=== PATIENT | male | born 1970 | race American Indian/Alaskan Native ===

== ENCOUNTER 2017-01-30 14:44 | Emergency (ER) | payer BC, MEDICAID, OTHER ==
[2017-01-30 14:28] VITALS: BP 100/78
[2017-01-30 15:04] LABS: CHLORIDE,CL 91 mmol/L (101-111); SODIUM,NA 128 mmol/L (135-145)
[2017-01-30] MEDS ORDERED: Sodium Chloride 0.9% 1,000 ML IV ONE (15:08)
[2017-01-30] MEDS ORDERED: Insulin NPH/Insulin Regular,Human 70-30 100 Units/ML 10 ML Vial SUBCUT ONE ×2 (15:11→16:15)
--- NOTE | 2017-01-30 15:18 | EDM.PDOC ---
ED HPI GENERAL MEDICAL PROBLEM - General Chief Complaint: General Stated Complaint: ELEVATED BLOOD SUGAR Time Seen by Provider: 01/30/17 15:00 Source of Information: Reports: Patient History Limitations: Reports: No Limitations - History of Present Illness INITIAL COMMENTS - FREE TEXT/NARRATIVE: This 46 yo male patient was brought to the ED by [facility] after being seen at the [facility]. While at the clinic, the clinic measured his blood sugar to be 700 and sent him to the ED by ambulance. The patient reports he has not taken his insulin since last Monday due to not feeling well. The patient reports he has had a cough for the past 2 weeks that has been getting worse. The patient has not been seen in the clinic for his current symptoms. Onset: Gradual Duration: Week(s):, Constant, Getting Worse Location: Reports: Generalized Quality: Reports: Ache, Dull Severity: Moderate Improves with: Reports: None Worsens with: Reports: None Associated Symptoms: Reports: No Other Symptoms Generalized Pain Score (Numeric/FACES): 7 - Related Data Allergies Allergy/AdvReac Type Severity Reaction Status Date / Time No Known Allergies Allergy Verified 12/01/15 03:59 Home Meds: Home Meds Levemir 20 units SQ BID 02/11/14 [History] Lisinopril 10 mg PO DAILY 02/11/14 [History] Novalog 12 units SQ TID 02/11/14 [History] Metoprolol Succinate [Toprol Xl] 100 mg PO DAILY 01/30/17 [History] Pantoprazole [ProTONIX] 40 mg PO ONETIME 01/30/17 [History] Past Medical History Cardiovascular History: Reports: Heart Failure, High Cholesterol, Hypertension, [place], Stents Respiratory History: Reports: Pneumonia, Recurrent Gastrointestinal History: Reports: Colon Polyp Genitourinary History: Reports: Diabetic Nephropathy, Prostate Disorder, Other ( See Below) Other Genitourinary History: cyst on left kidney and cancer on right kidney, small Musculoskeletal History: Reports: Fracture Psychiatric History: Reports: Anxiety Endocrine/Metabolic History: Reports: Diabetes, Type I Other Hematologic History: states blood was "too thin" at one time Oncologic (Cancer) History: Reports: Renal - Infectious Disease History Infectious Disease History: Reports: Hepatitis C - Past Surgical History Other Musculoskeletal Surgeries/Procedures:: plate in right lower leg Other Oncologic Surgeries/Procedures: supposed to have surgery, but has never been a candidate Social & Family History - Tobacco Use Smoking Status *Q: Current Every Day Smoker Years of Tobacco use: 20 Packs/Tins Daily: 1 Second Hand Smoke Exposure: Yes - Caffeine Use Caffeine Use: Reports: Soda, Tea - Recreational Drug Use Recreational Drug Use: No ED ROS GENERAL - Review of Systems Review Of Systems: ROS reveals no pertinent complaints other than HPI. ED EXAM, GENERAL - Physical Exam Exam: See Below Exam Limited By: No Limitations General Appearance: Alert, WD/WN, Moderate Distress Eye Exam: Bilateral Eye: EOMI, Normal Inspection, PERRL Ears: Normal External Exam, Normal Canal, Hearing Grossly Normal, Normal TMs Nose: Normal Inspection, Normal Mucosa, No Blood Throat/Mouth: Normal Inspection, Normal Lips, Normal Teeth, Normal Gums, Normal Oropharynx, Normal Voice, No Airway Compromise Head: Atraumatic, Normocephalic Neck: Normal Inspection, Supple, Non-Tender, Full Range of Motion Respiratory/Chest: No Respiratory Distress, No Accessory Muscle Use, Chest Non- Tender, Rhonchi (diffuse) Cardiovascular: Normal Peripheral Pulses, Regular Rate, Rhythm, No Edema, No Gallop, No JVD, No Murmur, No Rub GI/Abdominal: Normal Bowel Sounds, Soft, Non-Tender, No Organomegaly, No Distention, No Abnormal Bruit, No Mass (Male) Exam: Deferred Rectal (Males) Exam: Deferred Back Exam: Normal Inspection, Full Range of Motion, NT Extremities: Normal Inspection, Normal Range of Motion, Non-Tender, Normal Capillary Refill, No Pedal Edema Neurological: Alert, Oriented, CN II-XII Intact, Normal Cognition, Normal Gait, Normal Reflexes, No Motor/Sensory Deficits Psychiatric: Normal Affect, Normal Mood Skin Exam: Warm, Dry, Intact, Normal Color, No Rash Lymphatic: No Adenopathy Course - Vital Signs Last Recorded V/S: Last Vital Signs Temp 36.6 C 01/30/17 14:25 Pulse 91 01/30/17 14:25 Resp 12 01/30/17 14:25 BP 100/78 01/30/17 14:25 Pulse Ox 97 01/30/17 14:25 - Orders/Labs/Meds Orders: Active Orders 24 hr Category Date Time Status Glucose [Blood Glucose Check, Bedside] [RC] ONETIME Care 01/30/17 14:00 Active UA W/MICROSCOPIC [URIN] Stat Lab 01/30/17 16:12 Results Sodium Chloride 0.9% [Normal Saline] 1,000 ml Med 01/30/17 16:45 Active IV ASDIRECTED cefTRIAXone [Rocephin] 1 gm Med 01/30/17 16:42 Ordered Sodium Chloride 0.9% [Normal Saline] 50 ml IV ONETIME Medication Orders Sodium Chloride (Normal Saline) 1,000 mls @ 500 mls/hr IV ASDIRECTED JEFFY Last Admin: 01/30/17 16:32 Dose: 500 mls/hr Ceftriaxone Sodium 1 gm/ (Sodium Chloride) 50 mls @ 100 mls/hr IV ONETIME ONE Stop: 01/30/17 17:11 Labs: Laboratory Tests 01/30/17 01/30/17 01/30/17 Range/Units 14:04 14:15 14:15 WBC 8.6 (5.0-10.0) 10^3/uL RBC 5.32 (4.6-6.2) 10^6/uL Hgb 15.6 D (14.0-18.0) g/dL Hct 43.8 (40.0-54.0) % MCV 82.3 (80-100) fL MCH 29.3 (27.0-34.0) pg MCHC 35.6 H (33.0-35.0) g/dL Plt Count 240 (150-450) 10^3/uL Neut % (Auto) 68.0 (42.2-75.2) % Lymph % (Auto) 24.0 (20.5-50.1) % [place] % (Auto) 7.0 (2-8) % Eos % (Auto) 0.7 L (1.0-3.0) % Baso % (Auto) 0.3 (0.0-1.0) % Sodium 128 L (135-145) mmol/L Potassium 4.9 (3.6-5.0) mmol/L Chloride 91 L (101-111) mmol/L Carbon Dioxide 27.0 (21.0-31.0) mmol/L Anion Gap 14.9 BUN 18 (7-18) mg/dL Creatinine 0.7 (0.6-1.3) mg/dL Est Cr Clr Drug Dosing 136.15 mL/min Estimated GFR (MDRD) > 60 BUN/Creatinine Ratio 25.71 Glucose 512 H* (74-105) mg/dL POC Glucose 428 H* (70-105) mg/dl Calcium 9.6 (8.4-10.2) mg/dl Total Bilirubin 0.7 (0.2-1.0) mg/dL AST 21 (10-42) IU/L ALT 26 (10-60) IU/L Alkaline Phosphatase 193 H (42-121) IU/L Total Protein 7.5 (6.7-8.2) g/dl Albumin 3.9 (3.2-5.5) g/dl Globulin 3.6 Albumin/Globulin Ratio 1.08 Urine Color (YELLOW) Urine Appearance (CLEAR) Urine pH (5.0-9.0) Ur Specific [place] (1.005-1.030) Urine Protein (NEGATIVE) Urine Glucose (UA) (NEGATIVE) Urine Ketones (NEGATIVE) Urine Occult Blood (NEGATIVE) Urine Nitrite (NEGATIVE) Urine Bilirubin (NEGATIVE) Urine Urobilinogen (0.2-1.0) mg/dL Ur Leukocyte Esterase (NEGATIVE) Ketones Negative 01/30/17 01/30/17 Range/Units 16:12 16:20 WBC (5.0-10.0) 10^3/uL RBC (4.6-6.2) 10^6/uL Hgb (14.0-18.0) g/dL Hct (40.0-54.0) % MCV (80-100) fL MCH (27.0-34.0) pg MCHC (33.0-35.0) g/dL Plt Count (150-450) 10^3/uL Neut % (Auto) (42.2-75.2) % Lymph % (Auto) (20.5-50.1) % [place] % (Auto) (2-8) % Eos % (Auto) (1.0-3.0) % Baso % (Auto) (0.0-1.0) % Sodium (135-145) mmol/L Potassium (3.6-5.0) mmol/L Chloride (101-111) mmol/L Carbon Dioxide (21.0-31.0) mmol/L Anion Gap BUN (7-18) mg/dL Creatinine (0.6-1.3) mg/dL Est Cr Clr Drug Dosing mL/min Estimated GFR (MDRD) BUN/Creatinine Ratio Glucose (74-105) mg/dL POC Glucose 349 H (70-105) mg/dl Calcium (8.4-10.2) mg/dl Total Bilirubin (0.2-1.0) mg/dL AST (10-42) IU/L ALT (10-60) IU/L Alkaline Phosphatase (42-121) IU/L Total Protein (6.7-8.2) g/dl Albumin (3.2-5.5) g/dl Globulin Albumin/Globulin Ratio Urine Color Yellow (YELLOW) Urine Appearance Clear (CLEAR) Urine pH 5.5 (5.0-9.0) Ur Specific [place] 1.010 (1.005-1.030) Urine Protein 30 H (NEGATIVE) Urine Glucose (UA) 500 H (NEGATIVE) Urine Ketones Negative (NEGATIVE) Urine Occult Blood Negative (NEGATIVE) Urine Nitrite Negative (NEGATIVE) Urine Bilirubin Negative (NEGATIVE) Urine Urobilinogen 0.2 (0.2-1.0) mg/dL Ur Leukocyte Esterase Negative (NEGATIVE) Ketones Meds: Medications Generic Name Dose Route Start Last Admin Trade Name Freq PRN Reason Stop Dose Admin Sodium Chloride 1,000 mls @ 500 mls/hr 01/30/17 16:45 01/30/17 16:32 Normal Saline IV 500 mls/hr ASDIRECTED JEFFY Administration Ceftriaxone Sodium 1 gm/ 50 mls @ 100 mls/hr 01/30/17 16:42 Sodium Chloride IV 01/30/17 17:11 ONETIME ONE Discontinued Medications Generic Name Dose Route Start Last Admin Trade Name Freq PRN Reason Stop Dose Admin Sodium Chloride 1,000 mls @ 999 mls/hr 01/30/17 15:08 01/30/17 15:13 Normal Saline IV 01/30/17 16:08 999 mls/hr .BOLUS ONE Administration Insulin Human Isoph/Insulin Regular 10 unit 01/30/17 15:11 Novolin 70-30 SUBCUT 01/30/17 15:12 ONETIME ONE Insulin Human Isoph/Insulin Regular Confirm 01/30/17 16:15 Novolin 70-30 Administered 01/30/17 16:16 Dose 1,000 unit SUBCUT .STK-MED ONE Departure - Departure Time of Disposition: 17:00 Disposition: Home, Self-Care 01 Condition: Fair Clinical Impression: Bronchitis, Noncompliance with medication regimen, Hyperglycemia - Discharge Information Instructions: Acute Bronchitis, [id number], Hyperglycemia, [id number] Forms: ED Department Discharge Care Plan Goals: The patient was advised of the examination, lab and x-ray results during the visit. The patient was given an IV dose of Rocephin while in the ED. The patient was discharged with a script for Azithromycin (500 mg) #5 to take 1 by mouth daily for 5 days and Robitussin AC #60 mL to take 10 mL by mouth at bedtime for cough. The patient was encouraged to follow-up with his primary care facility in the next week for continued evaluation and further management. - My Orders Last 24 Hours: My Active Orders 01/30/17 14:00 Glucose [Blood Glucose Check, Bedside] [RC] ONETIME 01/30/17 16:12 UA W/MICROSCOPIC [URIN] Stat 01/30/17 16:42 cefTRIAXone [Rocephin] 1 gm Sodium Chloride 0.9% [Normal Saline] 50 ml IV ONETIME 01/30/17 16:45 Sodium Chloride 0.9% [Normal Saline] 1,000 ml IV ASDIRECTED - Assessment/Plan Last 24 Hours: My Active Orders 01/30/17 14:00 Glucose [Blood Glucose Check, Bedside] [RC] ONETIME 01/30/17 16:12 UA W/MICROSCOPIC [URIN] Stat 01/30/17 16:42 cefTRIAXone [Rocephin] 1 gm Sodium Chloride 0.9% [Normal Saline] 50 ml IV ONETIME 01/30/17 16:45 Sodium Chloride 0.9% [Normal Saline] 1,000 ml IV ASDIRECTED
--- NOTE | 2017-01-30 16:05 | CR ---
Clinical history: 46-year-old male shortness of breath. Interpretation: Some shaggy accentuation central lung markings with mild peribronchial "cuffing" but no current signs of air trapping. Hypertrophic arthritic changes of the spine. Normal cardiac silhouette without cephalization of vascular flow, signs of alveolar edema or dependen t pleural effusion. No lung mass, hilar lymphadenopathy or focal lobar pneumonia. No atelectasis/collapse. No pneumothora x. CONCLUSION: No acute new cardiopulmonary abnormality since 13 September 2015 exam.
[2017-01-30] MEDS ORDERED: cefTRIAXone 1 GM in Sodium Chloride 0.9% 50 ML IV ONE (16:42)
[2017-01-30] MEDS ORDERED: Sodium Chloride 0.9% 1,000 ML IV SCH (16:45)
[2017-01-30] MEDS ORDERED: Acetaminophen 325 MG Tab PO ONE (16:54)
== END 2017-01-30 17:43 | disposition home or self-care (01) ==
LOC: DL.ED 14:44
DX: E10.65 Type 1 diabetes mellitus with hyperglycemia (principal); J40 Bronchitis, not specified as acute or chronic; Z91.14 Patient's other noncompliance with medication regimen; I11.0 Hypertensive heart disease with heart failure; E10.21 Type 1 diabetes mellitus with diabetic nephropathy; I50.9 Heart failure, unspecified; E78.00 Pure hypercholesterolemia, unspecified; F17.210 Nicotine dependence, cigarettes, uncomplicated; Z79.899 Other long term (current) drug therapy
CPT/HCPCS: 36415; 71020; 80053; 81001; 82009; 82962; 85025; 96361; 96365; 99284; A9270; J0696; J1815; J7030; J7050

== ENCOUNTER 2017-02-20 15:58 | Emergency (ER) | payer MEDICAID, OTHER ==
--- NOTE | 2017-02-20 16:23 | EDM.PDOC ---
ED HPI GENERAL MEDICAL PROBLEM - General Stated Complaint: CHEST PAIN, CAME BY AMBULANCE Time Seen by Provider: 02/20/17 16:25 Source of Information: Reports: Patient, Provider History Limitations: Reports: No Limitations - History of Present Illness INITIAL COMMENTS - FREE TEXT/NARRATIVE: This 46 yo male patient was sent to the ED due to chest pain. The patient reports his chest pain has been intermittent over the weekend (describes his pain as substernal and in the left upper chest). The patient reports he had chest pains last night at about 2000, but his chest pain went away by 0130 this morning. When he got up this morning, the patient reports noticing that his heart was racing which caused him to be seen in the clinic. The patient reports that he has had a history of diabetes (A1C has been 8-9 and average blood sugars around 500). The patient reports he has been intermittently non- compliant with his medications. The patient also reports a past medical history of cancer (surgery was scheduled and cancelled 3 times in the past) and chronic pain due to trauma from the past (both ankles, left hand and right shoulder). The patient reports he has been very frustrated with his medical problems and fed up with chronic pain. 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 Duration: Week(s):, Intermittent Location: Reports: Chest (substernal and left upper chest) Quality: Reports: Ache, Sharp Severity: Moderate Improves with: Reports: None Worsens with: Reports: None Associated Symptoms: Reports: Chest Pain, Cough - Related Data Allergies Allergy/AdvReac Type Severity Reaction Status Date / Time No Known Allergies Allergy Verified 12/01/15 03:59 Home Meds: Home Meds Levemir 20 units SQ BID 02/11/14 [History] Lisinopril 10 mg PO DAILY 02/11/14 [History] Novalog 12 units SQ TID 02/11/14 [History] Pantoprazole [ProTONIX] 40 mg PO DAILY 01/30/17 [History] Metoprolol Succinate [Toprol XL] 1 tab PO DAILY 02/20/17 [History] Past Medical History Cardiovascular History: Reports: Heart Failure, High Cholesterol, Hypertension, [place], Stents Respiratory History: Reports: Pneumonia, Recurrent Gastrointestinal History: Reports: Colon Polyp Genitourinary History: Reports: Diabetic Nephropathy, Prostate Disorder, Other ( See Below) Other Genitourinary History: cyst on left kidney and cancer on right kidney, small Musculoskeletal History: Reports: Fracture Psychiatric History: Reports: Anxiety Endocrine/Metabolic History: Reports: Diabetes, Type I Other Hematologic History: states blood was "too thin" at one time Oncologic (Cancer) History: Reports: Renal - Infectious Disease History Infectious Disease History: Reports: Hepatitis C - Past Surgical History Other Musculoskeletal Surgeries/Procedures:: plate in right lower leg Other Oncologic Surgeries/Procedures: supposed to have surgery, but has never been a candidate Social & Family History - Tobacco Use Smoking Status *Q: Light Tobacco Smoker Years of Tobacco use: 20 Packs/Tins Daily: 0.2 Second Hand Smoke Exposure: Yes - Caffeine Use Caffeine Use: Reports: Soda, Tea - Recreational Drug Use Recreational Drug Use: No ED ROS GENERAL - Review of Systems Review Of Systems: ROS reveals no pertinent complaints other than HPI. ED EXAM, GENERAL - Physical Exam Exam: See Below Exam Limited By: No Limitations General Appearance: Alert, WD/WN, Moderate Distress Eye Exam: Bilateral Eye: EOMI, Normal Inspection, PERRL Ears: Normal External Exam, Normal Canal, Hearing Grossly Normal, Normal TMs Nose: Normal Inspection, Normal Mucosa, No Blood Throat/Mouth: Normal Inspection, Normal Lips, Normal Teeth, Normal Gums, Normal Oropharynx, Normal Voice, No Airway Compromise Head: Atraumatic, Normocephalic Neck: Normal Inspection, Supple, Non-Tender, Full Range of Motion Respiratory/Chest: No Respiratory Distress, Lungs Clear, Normal Breath Sounds, No Accessory Muscle Use, Chest Non-Tender Cardiovascular: Normal Peripheral Pulses, Regular Rate, Rhythm, No Gallop, No JVD, No Murmur, No Rub GI/Abdominal: Normal Bowel Sounds, Soft, Non-Tender, No Organomegaly, No Distention, No Abnormal Bruit, No Mass (Male) Exam: Deferred Rectal (Males) Exam: Deferred Back Exam: Normal Inspection, Full Range of Motion, NT Extremities: Normal Range of Motion, Normal Capillary Refill, Other ( generalized pain in both ankles, right shoulder and left hand due to previous injuries) Neurological: Alert, Oriented, CN II-XII Intact, Normal Cognition Psychiatric: Depressed Mood, Flat Affect Skin Exam: Warm, Dry, Intact, Normal Color, No Rash Lymphatic: No Adenopathy Course - Vital Signs Last Recorded V/S: Last Vital Signs Temp 37.4 C 02/20/17 15:57 Pulse 108 H 02/20/17 15:57 Resp 20 02/20/17 15:57 BP 118/77 02/20/17 15:57 Pulse Ox 97 02/20/17 15:57 - Orders/Labs/Meds Orders: Active Orders 24 hr Category Date Time Status EKG Documentation Completion [RC] URGENT Care 02/20/17 16:10 Active Labs: Laboratory Tests 02/20/17 02/20/17 Range/Units 16:25 16:25 WBC 7.9 (5.0-10.0) 10^3/uL RBC 4.94 (4.6-6.2) 10^6/uL Hgb 14.7 (14.0-18.0) g/dL Hct 41.2 (40.0-54.0) % MCV 83.4 (80-100) fL MCH 29.8 (27.0-34.0) pg MCHC 35.7 H (33.0-35.0) g/dL Plt Count 273 (150-450) 10^3/uL Neut % (Auto) 53.0 (42.2-75.2) % Lymph % (Auto) 37.5 (20.5-50.1) % [place] % (Auto) 7.4 (2-8) % Eos % (Auto) 1.3 (1.0-3.0) % Baso % (Auto) 0.8 (0.0-1.0) % Sodium 136 (135-145) mmol/L Potassium 3.8 (3.6-5.0) mmol/L Chloride 102 (101-111) mmol/L Carbon Dioxide 25.0 (21.0-31.0) mmol/L Anion Gap 12.8 BUN 21 H (7-18) mg/dL Creatinine 0.8 (0.6-1.3) mg/dL Est Cr Clr Drug Dosing 119.13 mL/min Estimated GFR (MDRD) > 60 BUN/Creatinine Ratio 26.25 Glucose 117 H (74-105) mg/dL Calcium 10.0 (8.4-10.2) mg/dl Total Bilirubin 0.6 (0.2-1.0) mg/dL AST 22 (10-42) IU/L ALT 24 (10-60) IU/L Alkaline Phosphatase 133 H (42-121) IU/L Troponin I < 0.02 (0.00-0.02) ng/ml Total Protein 7.6 (6.7-8.2) g/dl Albumin 3.9 (3.2-5.5) g/dl Globulin 3.7 Albumin/Globulin Ratio 1.05 Departure - Departure Time of Disposition: 17:13 Disposition: Home, Self-Care 01 Condition: Fair Clinical Impression: Non-cardiac chest pain, Chronic pain due to injury Instructions: Nonspecific Chest Pain, [id number], Chronic Pain, Type 1 Diabetes Mellitus, Adult Forms: ED Department Discharge Care Plan Goals: The patient was advised of the examination, lab, x-ray and EKG results during the visit. The patient was advised to return to his primary care facility for further testing (stress test) and pain management (due to previous orthopedic injuries). The patient was encouraged to continue to take his medications as prescribed. If the patient has any additional symptoms or concerns, the patient should follow-up with his primary care facility or return to the emergency department. - My Orders Last 24 Hours: My Active Orders 02/20/17 16:10 EKG Documentation Completion [RC] URGENT - Assessment/Plan Last 24 Hours: My Active Orders 02/20/17 16:10 EKG Documentation Completion [RC] URGENT
--- NOTE | 2017-02-20 16:34 | CR ---
Clinical history: 46-year-old male chest pain. Interpretation: *No acute new cardiopulmonary abnormality identified in the interval since 2016 chest x-ray. Normal cardiac silhouette and bony thorax. Midline tracheal airway unremarkable. No cephalization of vascular flow, signs of alveolar edema or dependent effusion. No new lung mass or focal lobar pneumonia. No atelectasis/collapse. No pneumothorax or free subdiaphragmatic air.
[2017-02-20 16:38] VITALS: BP 118/77
[2017-02-20 16:51] LABS: CHLORIDE,CL 102 mmol/L (101-111); SODIUM,NA 136 mmol/L (135-145)
--- NOTE | 2017-02-22 13:31 | EKG ---
02/20/2017 - LORENE BROOKS - A 12-lead EKG shows normal sinus rhythm with heart rate of 99. No significant ST elevation or ST depression noted on this 12-lead EKG. Nonspecific ST-T wave changes noted on lead V2 and V3. [facility] /[id number]
== END 2017-02-20 17:34 | disposition home or self-care (01) ==
LOC: DL.ED 15:58
DX: R07.89 Other chest pain (principal); M25.572 Pain in left ankle and joints of left foot; M25.571 Pain in right ankle and joints of right foot; M25.511 Pain in right shoulder; M79.642 Pain in left hand; G89.21 Chronic pain due to trauma; I10 Essential (primary) hypertension; F17.210 Nicotine dependence, cigarettes, uncomplicated; E10.9 Type 1 diabetes mellitus without complications; Z79.899 Other long term (current) drug therapy
CPT/HCPCS: 36415; 71010; 80053; 84484; 85025; 93005; 99285

== ENCOUNTER 2019-10-27 17:55 | Emergency (ER) | payer MEDICAID, OTHER ==
[2019-10-27 18:12] VITALS: BP 96/73; PULSE 107
[2019-10-27] MEDS ORDERED: fentaNYL 100 MCG/2 ML SDV IVPUSH ONE ×2 (18:38→21:30)
[2019-10-27] MEDS ORDERED: Clindamycin Phosphate 900 MG in Sodium Chloride 0.9% 100 ML IV ONE (18:38)
[2019-10-27] MEDS ORDERED: Sodium Chloride 0.9% 1,000 ML IV ONE (18:39)
--- NOTE | 2019-10-27 18:42 | EDM.PDOC ---
ED HPI GENERAL MEDICAL PROBLEM - General Chief Complaint: Lower Extremity Injury/Pain Stated Complaint: RIGHT FOOT, STEPPED ON A NAIL Time Seen by Provider: 10/27/19 18:40 Source of Information: Reports: Patient History Limitations: Reports: No Limitations - History of Present Illness INITIAL COMMENTS - FREE TEXT/NARRATIVE: stepped on nail 3 weeks ago looks worse today and hurts more. states also DM but not taken his Rx for 6 months now. Right Foot Pain Score (Numeric/FACES): 10 - Related Data Allergies Allergy/AdvReac Type Severity Reaction Status Date / Time No Known Allergies Allergy Verified 10/27/19 18:21 Past Medical History Cardiovascular History: Reports: Heart Failure, High Cholesterol, Hypertension, [place], Stents Respiratory History: Reports: Pneumonia, Recurrent Gastrointestinal History: Reports: Colon Polyp Genitourinary History: Reports: Diabetic Nephropathy, Prostate Disorder, Other (See Below) Other Genitourinary History: cyst on left kidney and cancer on right kidney, small Musculoskeletal History: Reports: Fracture Psychiatric History: Reports: Anxiety Endocrine/Metabolic History: Reports: Diabetes, Type I Other Hematologic History: states blood was "too thin" at one time Oncologic (Cancer) History: Reports: Renal - Infectious Disease History Infectious Disease History: Reports: Hepatitis C - Past Surgical History Other Musculoskeletal Surgeries/Procedures:: plate in right lower leg Other Oncologic Surgeries/Procedures: supposed to have surgery, but has never been a candidate Social & Family History - Tobacco Use Smoking Status *Q: Current Every Day Smoker Years of Tobacco use: 20 Packs/Tins Daily: 1 - Caffeine Use Caffeine Use: Reports: None - Alcohol Use Days Per Week of Alcohol Use: 7 Number of Drinks Per Day: 2 Total Drinks Per Week: 14 - Recreational Drug Use Recreational Drug Use: No Review of Systems - Review of Systems Review Of Systems: Comprehensive ROS is negative, except as noted in HPI. ED EXAM, GENERAL - Physical Exam Exam: See Below Exam Limited By: No Limitations General Appearance: Alert, WD/WN, Mild Distress, Moderate Distress, Other (pain) Ears: Hearing Grossly Normal Throat/Mouth: Normal Voice, No Airway Compromise Head: Atraumatic Neck: Non-Tender, Full Range of Motion Respiratory/Chest: No Respiratory Distress Cardiovascular: Regular Rate, Rhythm GI/Abdominal: Soft, Non-Tender Extremities: Other (right plantar 2"x1" grossly infected wound local erythema and odious) Neurological: Alert, Oriented, Normal Cognition, No Motor/Sensory Deficits Psychiatric: Flat Affect, Tearful Skin Exam: Warm, Dry, Normal Color Lymphatic: No Adenopathy Course - Vital Signs Last Recorded V/S: Last Vital Signs Temp 36.7 C 10/27/19 18:09 Pulse 107 H 10/27/19 18:09 Resp 20 10/27/19 18:09 BP 96/73 10/27/19 18:09 Pulse Ox 100 10/27/19 18:09 - Orders/Labs/Meds Orders: Active Orders 24 hr Category Date Time Status CULTURE BLOOD [BC] Stat Lab 10/27/19 18:19 Received CULTURE WOUND [RM] Stat Lab 10/27/19 18:09 Received Labs: Laboratory Tests 10/27/19 10/27/19 10/27/19 Range/Units 18:19 18:19 18:19 WBC 10.4 H (5.0-10.0) 10^3/uL RBC 4.20 L (4.6-6.2) 10^6/uL Hgb 12.0 L D (14.0-18.0) g/dL Hct 35.3 L (40.0-54.0) % MCV 84.0 (80-100) fL MCH 28.6 (27.0-34.0) pg MCHC 34.0 (33.0-35.0) g/dL Plt Count 304 (150-450) 10^3/uL Neut % (Auto) 74.3 (42.2-75.2) % Lymph % (Auto) 17.3 L (20.5-50.1) % [place] % (Auto) 7.2 (2-8) % Eos % (Auto) 1.0 (1.0-3.0) % Baso % (Auto) 0.2 (0.0-1.0) % Sodium 132 L (136-145) mmol/L Potassium 4.0 (3.5-5.1) mmol/L Chloride 96 L (98-107) mmol/L Carbon Dioxide 28 (21-32) mmol/L Anion Gap 12.0 (7-13) mEq/L BUN 17 (7-18) mg/dL Creatinine 1.33 H (0.70-1.30) mg/dL Est Cr Clr Drug Dosing TNP Estimated GFR (MDRD) 57 BUN/Creatinine Ratio 12.8 (No establ ref range) Glucose 224 H (74-99) mg/dL Lactic Acid 1.9 (0.4-2.0) mmol/L Calcium 8.8 (8.5-10.1) mg/dL Total Bilirubin 0.3 (0.2-1.0) mg/dL AST 15 (15-37) U/L ALT 18 (16-63) U/L Alkaline Phosphatase 110 (46-116) U/L Total Protein 8.0 (6.4-8.2) g/dL Albumin 2.4 L (3.4-5.0) g/dL Globulin 5.6 Albumin/Globulin Ratio 0.43 Meds: Medications Discontinued Medications Generic Name Dose Route Start Last Admin Trade Name Freq PRN Reason Stop Dose Admin Fentanyl 50 mcg 10/27/19 18:38 10/27/19 18:46 Sublimaze IVPUSH 10/27/19 18:39 50 mcg ONETIME ONE Administration Clindamycin Phosphate 900 mg/ 106 mls @ 200 mls/hr 10/27/19 18:38 10/27/19 18:48 Sodium Chloride IV 10/27/19 19:09 200 mls/hr ONETIME ONE Administration Sodium Chloride 1,000 mls @ 999 mls/hr 10/27/19 18:39 10/27/19 18:49 Normal Saline IV 10/27/19 19:39 999 mls/hr .BOLUS ONE Administration Iopamidol 100 ml 10/27/19 19:33 10/27/19 19:43 Isovue-300 (61%) IVPUSH 10/27/19 19:34 100 ml ONETIME ONE Administration - Re-Assessments/Exams Free Text/Narrative Re-Assessment/Exam: 10/27/19 21:[address] Poppy DO @ [facility]. Departure - Departure Time of Disposition: 21:20 Disposition: DC/Tfer to Acute Hospital 02 Condition: Fair Clinical Impression: Diabetic foot ulcer Qualifiers: Diabetic foot ulcer location: other Diabetes mellitus type: type 2 Laterality: right Non-pressure ulcer stage: with necrosis of muscle Qualified Code(s): E11.621 - Type 2 diabetes mellitus with foot ulcer; L97.513 - Non-pressure chronic ulcer of other part of right foot with necrosis of muscle - Discharge Information Forms: Interfacility Transfer EMTALA Sepsis Event Note (ED) - Evaluation Sepsis Screening Result: No Definite Risk - Focused Exam Vital Signs: Vital Signs Temp Pulse Resp BP Pulse Ox 10/27/19 18:09 36.7 C 107 H 20 96/73 100
[2019-10-27 18:48] LABS: CHLORIDE,CL 96 mmol/L (98-107); SODIUM,NA 132 mmol/L (136-145)
[2019-10-27] MEDS ORDERED: Iopamidol 612 MG/ML 100 ML Bottle IVPUSH ONE (19:33)
--- NOTE | 2019-10-27 20:40 | CT ---
PROCEDURE INFORMATION: Exam: CT Right Lower Extremity With Contrast, Foot Exam date and time: 10/27/2019 7:54 PM Age: 48 years old Clinical indication: Other: Pain; Additional info: R/O osteomyelitis and abscess TECHNIQUE: Imaging protocol: CT of the Right lower extremity with intravenous contrast was performed. Exam focused on the foot. Radiation optimization: All CT scans at this facility use at least one of these dose optimization techniques: automated exposure control; mA and/or kV adjustment per patient size (includes targeted exams where dose is matched to clinical indication); or iterative reconstruction. Contrast material: [id number]; Contrast volume: 100 ml; Contrast route: INTRAVENOUS (IV); COMPARISON: No relevant prior studies available. FINDINGS: Bones/joints: Bony structures are unremarkable. No osteolytic or destructive features. No fracture. No CT changes to suggest osteomyelitis. Mild lateral right talar dome osteochondral lesion. See coronal series 4, images 55 and 56. There are some images of the left foot and lower leg included. No acute findings. Soft tissues: Right plantar soft tissue ulceration and swelling consistent with cellulitis. There is no discrete fluid collection to suggest abscess. There is no soft tissue foreign body. Vascular atherosclerotic calcifications of the trifurcation arteries in both lower extremities. IMPRESSION: 1. Right plantar foot soft tissue swelling and ulceration. This may represent a diabetic type foot ulcer with associated cellulitis. No discrete abscess. No foreign body. 2. Lateral right talar dome small osteochondral lesion. 3. No CT features of osteomyelitis. 4. Left foot images included. No soft tissue wound. No acute bone or joint changes.
== END 2019-10-27 21:42 ==
LOC: DL.ED 17:55
DX: E11.621 Type 2 diabetes mellitus with foot ulcer (principal); L97.513 Non-pressure chronic ulcer of other part of right foot with necrosis of muscle; I11.0 Hypertensive heart disease with heart failure; I50.9 Heart failure, unspecified; E78.00 Pure hypercholesterolemia, unspecified; I25.2 Old myocardial infarction; E11.21 Type 2 diabetes mellitus with diabetic nephropathy; F17.210 Nicotine dependence, cigarettes, uncomplicated
CPT/HCPCS: 36415; 73701; 80053; 83605; 85025; 87040; 87070; 96361; 96365; 96375; 96376; 99285; J3010; J3490; J7030; J7050; Q9967; 87077; 87186

== ENCOUNTER 2020-11-25 16:38 | Inpatient (IN) | payer MEDICAID ==
[2020-11-25] MEDS ORDERED: Sodium Chloride 0.9% 10 ML Syringe FLUSH PRN (19:13)
[2020-11-25] MEDS ORDERED: Sodium Chloride 0.9% 1,000 ML IV ONE (19:20)
[2020-11-25] MEDS ORDERED: Piperacillin/Tazobactam 4.5 GM in Sodium Chloride 0.9% 100 ML IV ONE (19:23)
[2020-11-25 20:01] LABS: ANION GAP 7.9 mEq/L (7-13); CHLORIDE,CL 101 mmol/L (98-107); SODIUM,NA 136 mmol/L (136-145)
--- NOTE | 2020-11-25 20:16 | EDM.PDOC ---
ED HPI GENERAL MEDICAL PROBLEM - General Chief Complaint: Skin Complaint Stated Complaint: left foot injury Time Seen by Provider: 11/25/20 19:00 Source of Information: Reports: Patient History Limitations: Reports: No Limitations - History of Present Illness INITIAL COMMENTS - FREE TEXT/NARRATIVE: Patient comes emergency department today with concerns of an injury and infectio n to his left second toe. This patient has a history of diabetes for which he does not take any insulin management or treatment for. He does not check his blood sugar on a regular basis. For about the last 3 weeks he has noticed that there has been a sore on the tip of his left second toe that has slowly gotten worse to the point where his toe is quite painful swollen. It is getting to the point where he cannot take the pain in his foot anymore. He has not been evaluated for this. He does complain of some generalized chills. No fever. No chest pain no shortness of breath or difficulty breathing. No cough or congestion. No abdominal pain nausea or vomiting. He is unsure when his last tetanus shot was. He denies any other injury to the left lower extremity. - Related Data Allergies Allergy/AdvReac Type Severity Reaction Status Date / Time No Known Allergies Allergy Verified 11/11/19 15:28 Home Meds: Home Meds Acetaminophen [Tylenol] 650 mg PO Q4HR PRN 11/05/19 [History] Nicotine [Habitrol] 21 mg TD DAILY 11/05/19 [History] Remove Patch 1 patch TOP DAILY 11/05/19 [History] metFORMIN [Glucophage] 500 mg PO BID 11/05/19 [History] oxyCODONE 5 mg PO Q4HR 11/05/19 [History] Past Medical History HEENT History: Reports: None Cardiovascular History: Reports: Heart Failure, High Cholesterol, Hypertension, MA, Stents Respiratory History: Reports: Pneumonia, Recurrent Gastrointestinal History: Reports: Colon Polyp Genitourinary History: Reports: Diabetic Nephropathy, Prostate Disorder, Other (See Below) Other Genitourinary History: cyst on left kidney and cancer on right kidney, small Musculoskeletal History: Reports: Fracture Psychiatric History: Reports: Anxiety Endocrine/Metabolic History: Reports: Diabetes, Type II Other Hematologic History: states blood was "too thin" at one time Oncologic (Cancer) History: Reports: Renal - Infectious Disease History Infectious Disease History: Reports: Hepatitis C - Past Surgical History GI Surgical History: Reports: Colonoscopy, EGD Other Musculoskeletal Surgeries/Procedures:: plate in right lower leg Other Oncologic Surgeries/Procedures: supposed to have surgery, but has never been a candidate Social & Family History - Family History Family Medical History: No Pertinent Family History - Tobacco Use Tobacco Use Status *Q: Current Every Day Tobacco User Years of Tobacco use: 30 Packs/Tins Daily: 1 - Caffeine Use Caffeine Use: Reports: Soda ED ROS GENERAL - Review of Systems Review Of Systems: Comprehensive ROS is negative, except as noted in HPI. ED EXAM, SKIN/RASH Exam: See Below Exam Limited By: No Limitations General Appearance: Alert, WD/WN, No Apparent Distress Eye Exam: Bilateral Eye: EOMI Respiratory/Chest: No Respiratory Distress, Lungs Clear Cardiovascular: Normal Peripheral Pulses, Regular Rate, Rhythm Peripheral Pulses: 1+: Posterior Tibial (L), Posterior Tibial (R), Dorsalis Pedis (L), Dorsalis Pedis (R) GI/Abdominal: Normal Bowel Sounds, Soft, Non-Tender (Male) Exam: Deferred Rectal (Males) Exam: Deferred Back Exam: Normal Inspection, Full Range of Motion Extremities: Other (There is quite a bit of warmth throughout the entirety of the toes and the distal foot and forefoot. Quite a bit of swelling to the first toe without any erythema or skin breakdown.). No: Normal Inspection (Of the left foot. The second toe is quite broken down and skin and swollen. It appears that there is possibility of the distal phalanx that has broken through the skin. It is not completely black but it is quite purplish in color with scaling and peeling of the toe. ) Neurological: Alert, Oriented, Normal Cognition, No Motor/Sensory Deficits Psychiatric: Normal Affect, Normal Mood Skin: Warm Lymphatic: No Adenopathy Course - Vital Signs Last Recorded V/S: Last Vital Signs Temp 98.3 F 11/25/20 19:00 Pulse 91 11/25/20 19:00 Resp 20 11/25/20 19:00 BP 129/85 11/25/20 19:00 Pulse Ox 100 11/25/20 19:00 - Orders/Labs/Meds Orders: Active Orders 24 hr Category Date Time Status Peripheral IV Care [RC] . DIRECTED Care 11/25/20 19:13 Active CULTURE BLOOD [BC] Stat Lab 11/25/20 19:23 Received CULTURE BLOOD [BC] Stat Lab 11/25/20 19:34 Received PROCALCITONIN [REF] Stat Lab 11/25/20 19:23 Received Sodium Chloride 0.9% [Saline Flush] Med 11/25/20 19:13 Active 10 ml FLUSH ASDIRECTED PRN Blood Culture x2 Reflex Set [OM.PC] Stat Oth 11/25/20 19:19 Ordered Peripheral IV Insertion Adult [OM.PC] Stat Oth 11/25/20 19:13 Ordered Medication Orders Sodium Chloride (Sodium Chloride 0.9% 10 Ml Syringe) 10 ml FLUSH ASDIRECTED PRN PRN Reason: Keep Vein Open Last Admin: 11/25/20 19:44 Dose: 10 ml Documented by: KEYONA Labs: Laboratory Tests 11/25/20 11/25/20 11/25/20 Range/Units 19:23 19:23 19:23 WBC 11.1 H (5.0-10.0) 10^3/uL RBC 3.97 L (4.6-6.2) 10^6/uL Hgb 11.7 L (14.0-18.0) g/dL Hct 35.4 L (40.0-54.0) % MCV 89.2 D (80-100) fL MCH 29.5 (27.0-34.0) pg MCHC 33.1 (33.0-35.0) g/dL Plt Count 332 (150-450) 10^3/uL Neut % (Auto) 72.7 (42.2-75.2) % Lymph % (Auto) 15.4 L (20.5-50.1) % [place] % (Auto) 9.1 H (2-8) % Eos % (Auto) 2.6 (1.0-3.0) % Baso % (Auto) 0.2 (0.0-1.0) % Sodium 136 (136-145) mmol/L Potassium 3.9 (3.5-5.1) mmol/L Chloride 101 (98-107) mmol/L Carbon Dioxide 31 (21-32) mmol/L Anion Gap 7.9 (7-13) mEq/L BUN 17 (7-18) mg/dL Creatinine 0.84 (0.70-1.30) mg/dL Est Cr Clr Drug Dosing TNP Estimated GFR (MDRD) > 60 BUN/Creatinine Ratio 20.2 (No establ ref range) Glucose 196 H (70-99) mg/dL Lactic Acid 1.4 (0.4-2.0) mmol/L Calcium 8.4 L (8.5-10.1) mg/dL Total Bilirubin 0.2 (0.2-1.0) mg/dL AST 16 (15-37) U/L ALT 20 (16-63) U/L Alkaline Phosphatase 122 H (46-116) U/L C-Reactive Protein 6.1 H (0.0-0.9) mg/dL Total Protein 7.0 (6.4-8.2) g/dL Albumin 2.1 L (3.4-5.0) g/dL Globulin 4.9 Albumin/Globulin Ratio 0.43 Urine Color (YELLOW) Urine Appearance (CLEAR) Urine pH (5.0-9.0) Ur Specific [place] (1.005-1.030) Urine Protein (NEGATIVE) Urine Glucose (UA) (NEGATIVE) Urine Ketones (NEGATIVE) Urine Occult Blood (NEGATIVE) Urine Nitrite (NEGATIVE) Urine Bilirubin (NEGATIVE) Urine Urobilinogen (0.2-1.0) mg/dL Ur Leukocyte Esterase (NEGATIVE) Urine RBC (0-5) /HPF Urine WBC (0-5/HPF) /HPF Ur Epithelial Cells (NOT SEEN) /HPF Amorphous Sediment (NOT SEEN) /HPF Urine Bacteria (0-FEW/HPF) /HPF Urine Mucus (NOT SEEN) /LPF SARS-CoV-2 RNA (MIKE) (NEGATIVE) 11/25/20 11/25/20 Range/Units 19:30 20:03 WBC (5.0-10.0) 10^3/uL RBC (4.6-6.2) 10^6/uL Hgb (14.0-18.0) g/dL Hct (40.0-54.0) % MCV (80-100) fL MCH (27.0-34.0) pg MCHC (33.0-35.0) g/dL Plt Count (150-450) 10^3/uL Neut % (Auto) (42.2-75.2) % Lymph % (Auto) (20.5-50.1) % [place] % (Auto) (2-8) % Eos % (Auto) (1.0-3.0) % Baso % (Auto) (0.0-1.0) % Sodium (136-145) mmol/L Potassium (3.5-5.1) mmol/L Chloride (98-107) mmol/L Carbon Dioxide (21-32) mmol/L Anion Gap (7-13) mEq/L BUN (7-18) mg/dL Creatinine (0.70-1.30) mg/dL Est Cr Clr Drug Dosing Estimated GFR (MDRD) BUN/Creatinine Ratio (No establ ref range) Glucose (70-99) mg/dL Lactic Acid (0.4-2.0) mmol/L Calcium (8.5-10.1) mg/dL Total Bilirubin (0.2-1.0) mg/dL AST (15-37) U/L ALT (16-63) U/L Alkaline Phosphatase (46-116) U/L C-Reactive Protein (0.0-0.9) mg/dL Total Protein (6.4-8.2) g/dL Albumin (3.4-5.0) g/dL Globulin Albumin/Globulin Ratio Urine Color Yellow (YELLOW) Urine Appearance Slightly cloudy (CLEAR) Urine pH 6.0 (5.0-9.0) Ur Specific [place] 1.025 (1.005-1.030) Urine Protein 100 H (NEGATIVE) Urine Glucose (UA) Negative (NEGATIVE) Urine Ketones Negative (NEGATIVE) Urine Occult Blood Trace-intact H (NEGATIVE) Urine Nitrite Negative (NEGATIVE) Urine Bilirubin Negative (NEGATIVE) Urine Urobilinogen 1.0 (0.2-1.0) mg/dL Ur Leukocyte Esterase Negative (NEGATIVE) Urine RBC 5-10 H (0-5) /HPF Urine WBC 0-5 (0-5/HPF) /HPF Ur Epithelial Cells Rare (NOT SEEN) /HPF Amorphous Sediment Rare (NOT SEEN) /HPF Urine Bacteria Rare (0-FEW/HPF) /HPF Urine Mucus Few H (NOT SEEN) /LPF SARS-CoV-2 RNA (MIKE) Negative (NEGATIVE) Meds: Medications Generic Name Dose Route Start Last Admin Trade Name Freq PRN Reason Stop Dose Admin Sodium Chloride 10 ml 11/25/20 19:13 11/25/20 19:44 Sodium Chloride 0.9% 10 Ml Syringe FLUSH 10 ml ASDIRECTED PRN Administration Keep Vein Open Discontinued Medications Generic Name Dose Route Start Last Admin Trade Name [place] PRN Reason Stop Dose Admin Hydromorphone HCl 1 mg 11/25/20 21:52 11/25/20 21:58 Hydromorphone 1 Mg/Ml Syringe IVPUSH 11/25/20 21:53 1 mg ONETIME ONE Administration Sodium Chloride 1,000 mls @ 999 mls/hr 11/25/20 19:20 11/25/20 20:39 Normal Saline IV 11/25/20 20:20 100 mls/hr .BOLUS ONE Infusion Piperacillin Sod/Tazobactam 100 mls @ 200 mls/hr 11/25/20 19:23 11/25/20 19:42 Sod 4.5 gm/ Sodium Chloride IV 11/25/20 19:52 200 mls/hr ONETIME ONE Administration Vancomycin HCl 1,500 mg/ 500 mls @ 333.333 mls/hr 11/25/20 19:24 11/25/20 19:45 Sodium Chloride IV 11/25/20 20:53 333.333 mls/hr ONETIME ONE Administration Iopamidol 100 ml 11/25/20 20:25 11/25/20 21:03 Iopamidol 612 Mg/Ml 100 Ml Bottle IVPUSH 11/25/20 20:26 100 ml ONETIME ONE Administration - Radiology Interpretation Free Text/Narrative:: [facility] Final Radiology Report Call: [phone] assistance Online chat: [email or web address] Name: LORENE BROOKS Age: 50Years M Date: 11/25/2020 SSN: -- : [id number] Study: CT LOWER EXTREMITY W CONT LT Requesting Physician: ANA GOLDBERG Images: 640 Addl Studies: Provided Clinical History: gangrene left 2nd toe Contrast: With Contrast Medium: Isovue 300 Contrast Amount: 100 mL Contrast Method: Intravenous (IV) Page 1 of 2 PROCEDURE INFORMATION: Exam: CT Left Lower Extremity With Contrast Exam date and time: 11/25/2020 8:37 PM Age: 50 years old Clinical indication: Other: Gangrene left 2nd toe TECHNIQUE: Imaging protocol: CT of the Left lower extremity with intravenous contrast was performed. Radiation optimization: All CT scans at this facility use at least one of these dose optimization techniques: automated exposure control; mA and/or kV adjustment per patient size (includes targeted exams where dose is matched to clinical indication); or iterative reconstruction. Contrast material: ISOVUE 300; Contrast volume: 100 ml; Contrast route: INTRAVENOUS (IV); COMPARISON: No relevant prior studies available. FINDINGS: Bones/joints: No acute fracture or dislocation. Cortical erosion and foci of gas within the middle and distal phalanges of the 2nd toe. The remaining bones are without evidence of osteomyelitis. Soft tissues: Soft tissue swelling and ulceration involving the distal 2nd toe. No deep soft tissue gas. Extensive vascular calcifications. Subcutaneous edema primarily involving the lateral distal leg and foot. IMPRESSION: Second toe acute osteomyelitis, involving at least the middle and distal phalanges. Thank you for allowing us to participate in the care of your patient. Dictated and Authenticated by: Wil Lucas MD - Re-Assessments/Exams Free Text/Narrative Re-Assessment/Exam: 11/25/20 20:15 IV was established. Labs are drawn. Blood cultures x2. Zosyn 4.5 g IV piggyback for Pseudomonas coverage. Vancomycin 1.5 g IV piggyback for MRSA coverage. 1 L normal saline wide open. This patient clearly needs surgical debridement which is not available here. He has cellulitic component to his foot as well. I spoke with [facility] who is not accepting patients at this time. I also called called the [place] second call at [facility] in [place] he was placed on the list for transfer. 11/25/20 22:12 Laboratory evaluation with a mild elevation of his white blood cell count at 11.1, hemoglobin 11.7 platelet count 332. CMP with a glucose of 196 otherwise unremarkable. Lactic acid 1.4. C-reactive protein 6.1. Procalcitonin pending. Urinalysis trace amount of blood. Covid negative. Patient was given Dilaudid for pain. CT scan shows obvious osteomyelitis of the mid and distal phalanx of the left second toe with quite a bit of cellulitic component. This patient clearly needs antibiotics as well as surgical debridement of this gangrenous left toe. Although we are unable to transfer him for surgical definitive care at this time. He has been placed on a waiting list through the [place] second call system. I called and spoke with Dr. Barnett the hospitalist here finance professional for [facility]. HPI ER COURSE findings and concerns were relayed to him. He accepted the patient in transfer at this time for further care management and hopefully transfer in the future with the need for surgical debridement once a bed is available. The patient is comfortable with this plan and his questions answered. Departure - Departure Time of Disposition: 21:40 Disposition: Admitted As Inpatient 66 Clinical Impression: Diabetic foot infection, Non compliance with medical treatment Osteomyelitis Qualifiers: Osteomyelitis type: other acute Osteomyelitis location: foot Laterality: left Qualified Code(s): M86.172 - Other acute osteomyelitis, left ankle and foot - Discharge Information Sepsis Event Note (ED) - Evaluation Sepsis Screening Result: No Definite Risk - Focused Exam Vital Signs: Vital Signs Temp Pulse Resp BP Pulse Ox 11/25/20 19:00 98.3 F 91 20 129/85 100 - My Orders Last 24 Hours: My Active Orders 11/25/20 19:13 Peripheral IV Care [RC] . DIRECTED Sodium Chloride 0.9% [Saline Flush] 10 ml FLUSH ASDIRECTED PRN Peripheral IV Insertion Adult [OM.PC] Stat 11/25/20 19:19 Blood Culture x2 Reflex Set [OM.PC] Stat 11/25/20 19:23 CULTURE BLOOD [BC] Stat PROCALCITONIN [REF] Stat 11/25/20 19:34 CULTURE BLOOD [BC] Stat - Assessment/Plan Last 24 Hours: My Active Orders 11/25/20 19:13 Peripheral IV Care [RC] . DIRECTED Sodium Chloride 0.9% [Saline Flush] 10 ml FLUSH ASDIRECTED PRN Peripheral IV Insertion Adult [OM.PC] Stat 11/25/20 19:19 Blood Culture x2 Reflex Set [OM.PC] Stat 11/25/20 19:23 CULTURE BLOOD [BC] Stat PROCALCITONIN [REF] Stat 11/25/20 19:34 CULTURE BLOOD [BC] Stat
[2020-11-25] MEDS ORDERED: Iopamidol 612 MG/ML 100 ML Bottle IVPUSH ONE (20:25)
--- NOTE | 2020-11-25 21:38 | CT ---
PROCEDURE INFORMATION: Exam: CT Left Lower Extremity With Contrast Exam date and time: 11/25/2020 8:37 PM Age: 50 years old Clinical indication: Other: Gangrene left 2nd toe TECHNIQUE: Imaging protocol: CT of the Left lower extremity with intravenous contrast was performed. Radiation optimization: All CT scans at this facility use at least one of these dose optimization techniques: automated exposure control; mA and/or kV adjustment per patient size (includes targeted exams where dose is matched to clinical indication); or iterative reconstruction. Contrast material: ISOVUE 300; Contrast volume: 100 ml; Contrast route: INTRAVENOUS (IV); COMPARISON: No relevant prior studies available. FINDINGS: Bones/joints: No acute fracture or dislocation. Cortical erosion and foci of gas within the middle and distal phalanges of the 2nd toe. The remaining bones are without evidence of osteomyelitis. Soft tissues: Soft tissue swelling and ulceration involving the distal 2nd toe. No deep soft tissue gas. Extensive vascular calcifications. Subcutaneous edema primarily involving the lateral distal leg and foot. IMPRESSION: Second toe acute osteomyelitis, involving at least the middle and distal phalanges.
[2020-11-25] MEDS ORDERED: HYDROmorphone 1 MG/ML Syringe IVPUSH ONE (21:52)
[2020-11-25] MEDS ORDERED: Ondansetron 4 MG/2 ML SDV IVPUSH PRN (22:12)
[2020-11-25] MEDS ORDERED: Albuterol/Ipratropium 3.0-0.5 MG/3 ML Neb Soln NEB PRN (22:12)
[2020-11-25] MEDS ORDERED: Zolpidem 5 MG Tab PO PRN (22:12)
[2020-11-25] MEDS ORDERED: Polyethylene Glycol 3350 Powder 17 GM Packet PO PRN (22:12)
[2020-11-25] MEDS ORDERED: Acetaminophen 325 MG Tab PO PRN (22:12)
[2020-11-25] MEDS ORDERED: Ketorolac 30 MG/ML SDV IVPUSH PRN (22:12)
[2020-11-25] MEDS ORDERED: 50% Dextrose in Water 50 ML Syringe IVPUSH PRN (22:26)
[2020-11-25] MEDS ORDERED: Glucagon,Human Recombinant 1 MG Vial IM PRN (22:26)
[2020-11-25] MEDS ORDERED: Nicotine 21 MG/24 Hr Patch TRDERM PRN (22:36)
[2020-11-25 22:43] LABS: PTT,PARTIAL THROMBOPLSTIN TIME 27.2 SEC (22.0-34.0)
[2020-11-25] MEDS: Acetaminophen/HYDROcodone 325-10 MG Tab PO PRN (23:10)
[2020-11-25] MEDS: HYDROmorphone 1 MG/ML Syringe IVPUSH PRN (23:11)
[2020-11-26] MEDS: Piperacillin/Tazobactam 3.375 GM in Sodium Chloride 0.9% 100 ML IV SCH ×3 (02:11→14:43)
[2020-11-26] MEDS: Acetaminophen/HYDROcodone 325-10 MG Tab PO PRN ×2 (06:03→15:40)
[2020-11-26] MEDS: Heparin Sodium 5,000 Units/ML Vial SUBCUT SCH ×2 (06:03→14:46)
[2020-11-26] MEDS: HYDROmorphone 1 MG/ML Syringe IVPUSH PRN (06:04)
[2020-11-26 06:57] LABS: ANION GAP 7.9 mEq/L (7-13); CHLORIDE,CL 105 mmol/L (98-107); SODIUM,NA 138 mmol/L (136-145)
--- NOTE | 2020-11-26 07:05 | PCM.HP ---
H&P History of Present Illness - General Date of Service: 11/26/20 Admit Problem/Dx: Admission Diagnosis/Problem Admission Diagnosis/Problem Diabetic foot infection Source of Information: Patient, Provider, RN Notes Reviewed History Limitations: Reports: No Limitations - History of Present Illness Initial Comments - Free Text/Narative: This is a 50-year-old white male with past medical history of hypertension, hyperlipidemia, history of OH with stent placement, heart failure with unknown EF, prostate disorder, longstanding type 2 diabetes, medical nonadherence to treatment, diabetic peripheral neuropathy on all extremities, cyst on left kidney, history of cancer in the right kidney, history of hep C infection, anxiety, nicotine dependence, and chronic pain syndrome who presents to the emergency department last night with 2-week history of left foot infection and was diagnosed with acute osteomyelitis via CT scan with necrotic toe. According to him, he does not know his last A1c was. He does not check his blood glucose. He has not taken any of his home medications for 8 years. He chews tobacco products but does not vape. He drinks alcohol, about 3 L a day for 18 years. His last intake was this past Monday. He denies illicit drug use. His initial work-up in the emergency department shows a CBC remarkable for WBC of 11.1, hemoglobin of 11.7, hematocrit of 35.4, and normal neutrophils count. His chemistry is significant for glucose of 196, non-corrected calcium of 8.4, alkaline phosphatase of 122, CRP of 6.1, and albumin of 2.1. His UA does not show urinary tract infection. His repeat BMP this morning shows glucose of 182, non-corrected calcium of 7.9, magnesium of 1.7, and CRP of 4.9. His CT scan of left lower extremity was read as second toe acute osteomyelitis involving at least the middle and distal phalanges. Overnight and up until this morning, the patient remains hemodynamically stable. The attending provider last night in the emergency department attempted to ship him out to [facility]/or [place] but without much success due to nonavailability of beds. He was admitted to the floor and was put on combination of zosyn and vancomycin for initial treatment. To note, this hospital does not have general surgery or orthopedic services. His CODE STATUS is full. Left Toe-Long Pain Score (Numeric/FACES): 9 - Related Data Allergies/Adverse Reactions: Allergies Allergy/AdvReac Type Severity Reaction Status Date / Time No Known Allergies Allergy Verified 11/11/19 15:28 Home Medications: Home Meds . [No Known Home Meds] 11/26/20 [History] Past Medical History HEENT History: Reports: None Cardiovascular History: Reports: Heart Failure, High Cholesterol, Hypertension, OH, Stents Respiratory History: Reports: Pneumonia, Recurrent Gastrointestinal History: Reports: Colon Polyp Genitourinary History: Reports: Diabetic Nephropathy, Prostate Disorder, Other (See Below) Other Genitourinary History: cyst on left kidney and cancer on right kidney, small Musculoskeletal History: Reports: Fracture Psychiatric History: Reports: Anxiety Endocrine/Metabolic History: Reports: Diabetes, Type II Other Hematologic History: states blood was "too thin" at one time Oncologic (Cancer) History: Reports: Renal - Infectious Disease History Infectious Disease History: Reports: Hepatitis C - Past Surgical History Cardiovascular Surgical History: Reports: Carotid Stents GI Surgical History: Reports: Colonoscopy, EGD Other Musculoskeletal Surgeries/Procedures:: plate in right lower leg Other Oncologic Surgeries/Procedures: supposed to have surgery, but has never been a candidate Social & Family History - Family History Family Medical History: No Pertinent Family History - Tobacco Use Tobacco Use Status *Q: Current Every Day Tobacco User Years of Tobacco use: 35 Packs/Tins Daily: 1 Used Tobacco, but Quit: No Tobacco Use Comment: Pt. states he stopped smoking about a year ago, but uses chewing tobacco daily Second Hand Smoke Exposure: Yes - Caffeine Use Caffeine Use: Reports: None - Alcohol Use Days Per Week of Alcohol Use: 7 Number of Drinks Per Day: 24 Total Drinks Per Week: 168 Date of Last Drink: 11/23/20 Time of Last Drink: 03:00 - Recreational Drug Use Recreational Drug Use: No H&P Review of Systems - Review of Systems: Review Of Systems: See Below General: Denies: Fever, Chills, Malaise, Weakness HEENT: Denies: Contact Lenses Pulmonary: Denies: Shortness of Breath, Pleuritic Chest Pain Cardiovascular: Denies: Chest Pain, Dyspnea on Exertion, Lightheadedness, Syncope, Claudication, Blood Pressure Problem Gastrointestinal: Denies: Abdominal Pain, Nausea, Vomiting Genitourinary: Denies: Frequency, Burning, Urgency Musculoskeletal: Reports: Leg Pain. Denies: Arm Pain, Back Pain Skin: Reports: Wound, Lesions. Denies: Cyanosis, Mottled Psychiatric: Denies: Confusion, Anxiety, Agitation Neurological: Reports: Difficulty Walking, Gait Disturbance. Denies: Confusion, Seizure, Weakness Hematologic/Lymphatic: Reports: No Symptoms Immunologic: Reports: No Symptoms Exam - Exam Exam: See Below - Vital Signs Vital Signs: Last Vital Signs Temp 37.1 C 11/25/20 22:12 Pulse 80 11/25/20 22:12 Resp 18 11/25/20 22:12 BP 130/72 11/25/20 22:12 Pulse Ox 96 11/25/20 22:12 Weight: 77.111 kg - Exam Quality Assessment: DVT Prophylaxis. No: Supplemental Oxygen, Urinary Catheter General: Alert, Oriented, Cooperative HEENT: Conjunctiva Clear, EACs Clear, EOMI, Hearing Intact, Mucosa Moist & [place], Nares Patent, Normal Nasal Septum, Posterior Pharynx Clear, Pupils Equal, Pupils Reactive Neck: Supple, Trachea Midline Lungs: Clear to Auscultation, Normal Respiratory Effort Cardiovascular: Regular Rate, Regular Rhythm GI/Abdominal Exam: Normal Bowel Sounds, Soft, Non-Tender, No Organomegaly, No Distention, No Abnormal Bruit (Male) Exam: Deferred Rectal (Males) Exam: Deferred Back Exam: Normal Inspection, Full Range of Motion Extremities: Normal Range of Motion, Normal Capillary Refill, Other (Gangrenous second toe of the left foot with surrounding edema and tenderness). No: Redness Peripheral Pulses: 2+: Dorsalis Pedis (L), Dorsalis Pedis (R) Skin: Warm, Dry, Intact, Wound (Left foot) Neuro Extensive - Mental Status: Oriented x3, Normal Cognition, Memory Intact Neuro Extensive - Motor, Sensory, Reflexes: CN II-XII Intact, Abnormal Sensation, Other (Has baseline peripheral neuropathy due to diabetes in all extremities). No: Normal Gait Psychiatric: Alert, Normal Affect, Normal Mood. No: Anxious, Agitated, Suicidal Ideation, Hallucinations, Withdrawal Symptoms - Patient Data Lab Results Last 24 hrs: Laboratory Results - last 24 hr 11/25/20 11/25/20 11/25/20 Range/Units 19:23 19:23 19:23 WBC 11.1 H (5.0-10.0) 10^3/uL RBC 3.97 L (4.6-6.2) 10^6/uL Hgb 11.7 L (14.0-18.0) g/dL Hct 35.4 L (40.0-54.0) % MCV 89.2 D (80-100) fL MCH 29.5 (27.0-34.0) pg MCHC 33.1 (33.0-35.0) g/dL Plt Count 332 (150-450) 10^3/uL Neut % (Auto) 72.7 (42.2-75.2) % Lymph % (Auto) 15.4 L (20.5-50.1) % [place] % (Auto) 9.1 H (2-8) % Eos % (Auto) 2.6 (1.0-3.0) % Baso % (Auto) 0.2 (0.0-1.0) % PT (9.0-12.0) SEC INR (0.9-1.2) APTT (22.0-34.0) SEC Sodium 136 (136-145) mmol/L Potassium 3.9 (3.5-5.1) mmol/L Chloride 101 (98-107) mmol/L Carbon Dioxide 31 (21-32) mmol/L Anion Gap 7.9 (7-13) mEq/L BUN 17 (7-18) mg/dL Creatinine 0.84 (0.70-1.30) mg/dL Est Cr Clr Drug Dosing TNP Estimated GFR (MDRD) > 60 BUN/Creatinine Ratio 20.2 (No establ ref range) Glucose 196 H (70-99) mg/dL Lactic Acid 1.4 (0.4-2.0) mmol/L Calcium 8.4 L (8.5-10.1) mg/dL Total Bilirubin 0.2 (0.2-1.0) mg/dL AST 16 (15-37) U/L ALT 20 (16-63) U/L Alkaline Phosphatase 122 H (46-116) U/L C-Reactive Protein 6.1 H (0.0-0.9) mg/dL Total Protein 7.0 (6.4-8.2) g/dL Albumin 2.1 L (3.4-5.0) g/dL Globulin 4.9 Albumin/Globulin Ratio 0.43 Urine Color (YELLOW) Urine Appearance (CLEAR) Urine pH (5.0-9.0) Ur Specific [place] (1.005-1.030) Urine Protein (NEGATIVE) Urine Glucose (UA) (NEGATIVE) Urine Ketones (NEGATIVE) Urine Occult Blood (NEGATIVE) Urine Nitrite (NEGATIVE) Urine Bilirubin (NEGATIVE) Urine Urobilinogen (0.2-1.0) mg/dL Ur Leukocyte Esterase (NEGATIVE) Urine RBC (0-5) /HPF Urine WBC (0-5/HPF) /HPF Ur Epithelial Cells (NOT SEEN) /HPF Amorphous Sediment (NOT SEEN) /HPF Urine Bacteria (0-FEW/HPF) /HPF Urine Mucus (NOT SEEN) /LPF SARS-CoV-2 RNA (MIKE) (NEGATIVE) 11/25/20 11/25/20 11/25/20 Range/Units 19:23 19:30 20:03 WBC (5.0-10.0) 10^3/uL RBC (4.6-6.2) 10^6/uL Hgb (14.0-18.0) g/dL Hct (40.0-54.0) % MCV (80-100) fL MCH (27.0-34.0) pg MCHC (33.0-35.0) g/dL Plt Count (150-450) 10^3/uL Neut % (Auto) (42.2-75.2) % Lymph % (Auto) (20.5-50.1) % [place] % (Auto) (2-8) % Eos % (Auto) (1.0-3.0) % Baso % (Auto) (0.0-1.0) % PT 9.6 (9.0-12.0) SEC INR 1.0 (0.9-1.2) APTT 27.2 (22.0-34.0) SEC Sodium (136-145) mmol/L Potassium (3.5-5.1) mmol/L Chloride (98-107) mmol/L Carbon Dioxide (21-32) mmol/L Anion Gap (7-13) mEq/L BUN (7-18) mg/dL Creatinine (0.70-1.30) mg/dL Est Cr Clr Drug Dosing Estimated GFR (MDRD) BUN/Creatinine Ratio (No establ ref range) Glucose (70-99) mg/dL Lactic Acid (0.4-2.0) mmol/L Calcium (8.5-10.1) mg/dL Total Bilirubin (0.2-1.0) mg/dL AST (15-37) U/L ALT (16-63) U/L Alkaline Phosphatase (46-116) U/L C-Reactive Protein (0.0-0.9) mg/dL Total Protein (6.4-8.2) g/dL Albumin (3.4-5.0) g/dL Globulin Albumin/Globulin Ratio Urine Color Yellow (YELLOW) Urine Appearance Slightly cloudy (CLEAR) Urine pH 6.0 (5.0-9.0) Ur Specific [place] 1.025 (1.005-1.030) Urine Protein 100 H (NEGATIVE) Urine Glucose (UA) Negative (NEGATIVE) Urine Ketones Negative (NEGATIVE) Urine Occult Blood Trace-intact H (NEGATIVE) Urine Nitrite Negative (NEGATIVE) Urine Bilirubin Negative (NEGATIVE) Urine Urobilinogen 1.0 (0.2-1.0) mg/dL Ur Leukocyte Esterase Negative (NEGATIVE) Urine RBC 5-10 H (0-5) /HPF Urine WBC 0-5 (0-5/HPF) /HPF Ur Epithelial Cells Rare (NOT SEEN) /HPF Amorphous Sediment Rare (NOT SEEN) /HPF Urine Bacteria Rare (0-FEW/HPF) /HPF Urine Mucus Few H (NOT SEEN) /LPF SARS-CoV-2 RNA (MIKE) Negative (NEGATIVE) 11/26/20 Range/Units 06:20 WBC 8.5 (5.0-10.0) 10^3/uL RBC 3.45 L (4.6-6.2) 10^6/uL Hgb 10.0 L D (14.0-18.0) g/dL Hct 31.4 L (40.0-54.0) % MCV 91.0 (80-100) fL MCH 29.0 (27.0-34.0) pg MCHC 31.8 L (33.0-35.0) g/dL Plt Count 301 (150-450) 10^3/uL Neut % (Auto) 62.4 (42.2-75.2) % Lymph % (Auto) 24.0 (20.5-50.1) % [place] % (Auto) 9.2 H (2-8) % Eos % (Auto) 3.9 H (1.0-3.0) % Baso % (Auto) 0.5 (0.0-1.0) % PT (9.0-12.0) SEC INR (0.9-1.2) APTT (22.0-34.0) SEC Sodium (136-145) mmol/L Potassium (3.5-5.1) mmol/L Chloride (98-107) mmol/L Carbon Dioxide (21-32) mmol/L Anion Gap (7-13) mEq/L BUN (7-18) mg/dL Creatinine (0.70-1.30) mg/dL Est Cr Clr Drug Dosing Estimated GFR (MDRD) BUN/Creatinine Ratio (No establ ref range) Glucose (70-99) mg/dL Lactic Acid (0.4-2.0) mmol/L Calcium (8.5-10.1) mg/dL Total Bilirubin (0.2-1.0) mg/dL AST (15-37) U/L ALT (16-63) U/L Alkaline Phosphatase (46-116) U/L C-Reactive Protein (0.0-0.9) mg/dL Total Protein (6.4-8.2) g/dL Albumin (3.4-5.0) g/dL Globulin Albumin/Globulin Ratio Urine Color (YELLOW) Urine Appearance (CLEAR) Urine pH (5.0-9.0) Ur Specific [place] (1.005-1.030) Urine Protein (NEGATIVE) Urine Glucose (UA) (NEGATIVE) Urine Ketones (NEGATIVE) Urine Occult Blood (NEGATIVE) Urine Nitrite (NEGATIVE) Urine Bilirubin (NEGATIVE) Urine Urobilinogen (0.2-1.0) mg/dL Ur Leukocyte Esterase (NEGATIVE) Urine RBC (0-5) /HPF Urine WBC (0-5/HPF) /HPF Ur Epithelial Cells (NOT SEEN) /HPF Amorphous Sediment (NOT SEEN) /HPF Urine Bacteria (0-FEW/HPF) /HPF Urine Mucus (NOT SEEN) /LPF SARS-CoV-2 RNA (MIKE) (NEGATIVE) Result Diagrams: 11/26/20 06:20 11/26/20 06:20 Problem List Initiated/Reviewed/Updated: Yes Orders Last 24hrs: Active Orders 24 hr Category Date Time Status Admission Status [Patient Status] [ADT] Routine ADT 11/25/20 21:45 Active Blood Glucose Check, Bedside [RC] TIDMEALS Care 11/25/20 22:12 Active Intake and Output [RC] 06,14,22 Care 11/25/20 22:13 Active Oxygen Therapy [RC] PRN Care 11/25/20 22:12 Active Peripheral IV Care [RC] . DIRECTED Care 11/25/20 19:13 Active RT Aerosol Therapy [RC] ASDIRECTED Care 11/25/20 22:16 Active Up ad Bharti [RC] ASDIRECTED Care 11/25/20 22:12 Active VTE/DVT Education [RC] Care 11/25/20 22:12 Active Vital Signs [RC] 00,04,08,12,16,20 Care 11/25/20 22:12 Active Consult to Case Management/Property Preservation Specialist [CONS] Cons 11/25/20 22:12 Active Routine Consult to Diabetic Nurse Specialist [CONS] Routine Cons 11/25/20 22:12 Active Consult to Dietary [Consult to Publishing Systems Analyst] [CONS] Cons 11/25/20 22:39 Active Routine Consistent Carbohydrate Diet [DIET] Diet 11/25/20 Breakfast Active Heart Healthy Diet [DIET] Diet 11/25/20 Breakfast Active BASIC METABOLIC PANEL,BMP [CHEM] DAILY Lab 11/26/20 06:20 Received BASIC METABOLIC PANEL,BMP [CHEM] DAILY Lab 11/27/20 05:11 Ordered BASIC METABOLIC PANEL,BMP [CHEM] DAILY Lab 11/28/20 05:11 Ordered BASIC METABOLIC PANEL,BMP [CHEM] DAILY Lab 11/29/20 05:11 Ordered BASIC METABOLIC PANEL,BMP [CHEM] DAILY Lab 11/30/20 05:11 Ordered C-REACTIVE PROTEIN [CHEM] Routine Lab 11/26/20 06:20 Received C-REACTIVE PROTEIN [REF] DAILY Lab 11/27/20 05:11 Ordered C-REACTIVE PROTEIN [REF] DAILY Lab 11/28/20 05:11 Ordered C-REACTIVE PROTEIN [REF] DAILY Lab 11/29/20 05:11 Ordered C-REACTIVE PROTEIN [REF] DAILY Lab 11/30/20 05:11 Ordered CBC WITH AUTO DIFF [HEME] DAILY Lab 11/27/20 05:11 Ordered CBC WITH AUTO DIFF [HEME] DAILY Lab 11/28/20 05:11 Ordered CBC WITH AUTO DIFF [HEME] DAILY Lab 11/29/20 05:11 Ordered CBC WITH AUTO DIFF [HEME] DAILY Lab 11/30/20 05:11 Ordered CULTURE BLOOD [BC] Stat Lab 11/25/20 19:23 Received CULTURE BLOOD [BC] Stat Lab 11/25/20 19:34 Received CULTURE WOUND + SMEAR [RM] Routine Lab 11/25/20 22:19 Ordered LACTIC ACID [CHEM] Routine Lab 11/26/20 06:20 Received MAGNESIUM [CHEM] DAILY Lab 11/26/20 06:20 Received MAGNESIUM [CHEM] DAILY Lab 11/27/20 05:11 Ordered MAGNESIUM [CHEM] DAILY Lab 11/28/20 05:11 Ordered MAGNESIUM [CHEM] DAILY Lab 11/29/20 05:11 Ordered MAGNESIUM [CHEM] DAILY Lab 11/30/20 05:11 Ordered PROCALCITONIN [REF] Stat Lab 11/25/20 19:23 Received Acetaminophen [TylenoL] Med 11/25/20 22:12 Active 650 mg PO Q4H PRN Acetaminophen/HYDROcodone [Bernice 325-10 MG] Med 11/25/20 22:12 Active 0.5 tab PO Q4H PRN Albuterol/Ipratropium [DuoNeb 3.0-0.5 MG/3 ML] Med 11/25/20 22:12 Active 3 ml NEB Q4H PRN Dextrose 50% in Water Med 11/25/20 22:26 Active 50 ml IVPUSH Q15M PRN Famotidine [Pepcid] Med 11/26/20 09:00 Active 20 mg PO BID Glucagon,Human Recombinant [GlucaGen] Med 11/25/20 22:26 Active 1 mg IM Q15M PRN HYDROmorphone [Dilaudid] Med 11/25/20 22:12 Active 0.5 mg IVPUSH Q2H PRN Heparin Sodium Med 11/26/20 06:00 Active 5,000 units SUBCUT Q8HR Insulin Lispro [HumaLOG] Med 11/26/20 08:00 Active See Protocol SUBCUT TIDMEALS Ketorolac [Toradol] Med 11/25/20 22:12 Active 30 mg IVPUSH Q6H PRN Nicotine [Habitrol] Med 11/25/20 22:36 Active 21 mg TRDERM DAILY PRN Ondansetron [Zofran] Med 11/25/20 22:12 Active 4 mg IVPUSH Q6H PRN Pharmacy to Dose - Vancomycin Med 11/26/20 22:22 Pending 1 dose .XX ASDIRECTED Piperacillin/Tazobactam [Zosyn] 3.375 gm Med 11/26/20 02:00 Active Sodium Chloride 0.9% [Normal Saline] 100 ml IV Q6H Sodium Chloride 0.9% [Saline Flush] Med 11/25/20 19:13 Active 10 ml FLUSH ASDIRECTED PRN Vancomycin 1.25 gm Med 11/26/20 04:00 Active Sodium Chloride 0.9% [Normal Saline (AdvBag)] 250 ml IV Q8H Zolpidem [Ambien] Med 11/25/20 22:12 Active 5 mg PO BEDTIME PRN polyethylene glycoL 3350 [MiraLAX] Med 11/25/20 22:12 Active 17 gm PO DAILY PRN Blood Culture x2 Reflex Set [OM.PC] Stat Oth 11/25/20 19:19 Ordered Peripheral IV Insertion Adult [OM.PC] Stat Oth 11/25/20 19:13 Ordered Resuscitation Status Routine Resus Stat 11/25/20 22:12 Ordered Medication Orders Acetaminophen (Acetaminophen 325 Mg Tab) 650 mg PO Q4H PRN PRN Reason: Pain (Mild 1-3)/fever Hydrocodone Bitart/Acetaminophen (Acetaminophen/Hydrocodone 325-10 Mg Tab) 0.5 tab PO Q4H PRN PRN Reason: Pain (moderate 4-6) Last Admin: 11/26/20 06:03 Dose: 0.5 tab Documented by: Admin: 11/25/20 23:10 Dose: 0.5 tab Documented by: DONI Albuterol/Ipratropium (Albuterol/Ipratropium 3.0-0.5 Mg/3 Ml Neb Soln) 3 ml NEB Q4H PRN PRN Reason: shortness of breath/wheezing Dextrose/Water (50% Dextrose In Water 50 Ml Syringe) 50 ml IVPUSH Q15M PRN PRN Reason: Hypoglycemia Famotidine (Famotidine 20 Mg Tab) 20 mg PO BID JEFFY Glucagon (Glucagon,Human Recombinant 1 Mg Vial) 1 mg IM Q15M PRN PRN Reason: Hypoglycemia Heparin Sodium (Porcine) (Heparin Sodium 5,000 Units/Ml Vial) 5,000 units SUBC UT Q8HR JEFFY Last Admin: 11/26/20 06:03 Dose: 5,000 units Documented by: DONI Hydromorphone HCl (Hydromorphone 1 Mg/Ml Syringe) 0.5 mg IVPUSH Q2H PRN PRN Reason: Pain (severe 7-10) Last Admin: 11/26/20 06:04 Dose: 0.5 mg Documented by: Admin: 11/25/20 23:11 Dose: 0.5 mg Documented by: DONI Piperacillin Sod/Tazobactam (Sod 3.375 gm/ Sodium Chloride) 100 mls @ 200 mls/hr IV Q6H [facility] Last Admin: 11/26/20 02:11 Dose: 200 mls/hr Documented by: DONI Vancomycin HCl 1.25 gm/ Sodium (Chloride) 250 mls @ 166.667 mls/hr IV Q8H [facility] Last Admin: 11/26/20 04:11 Dose: 166.667 mls/hr Documented by: DONI Insulin Human Lispro (Insulin Lispro 100 Units/Ml 3 Ml Vial) 0 unit SUBCUT TIDMEALS [facility]; Protocol Ketorolac Tromethamine (Ketorolac 30 Mg/Ml Sdv) 30 mg IVPUSH Q6H PRN PRN Reason: Pain (moderate 4-6) Nicotine (Nicotine 21 Mg/24 Hr Patch) 21 mg TRDERM DAILY PRN PRN Reason: Nicotine Dependence Ondansetron HCl (Ondansetron 4 Mg/2 Ml Sdv) 4 mg IVPUSH Q6H PRN PRN Reason: Nausea/Vomiting Polyethylene Glycol (Polyethylene Glycol 3350 Powder 17 Gm Packet) 17 gm PO D AILY PRN PRN Reason: Constipation Sodium Chloride (Sodium Chloride 0.9% 10 Ml Syringe) 10 ml FLUSH ASDIRECTED PRN PRN Reason: Keep Vein Open Last Admin: 11/25/20 19:44 Dose: 10 ml Documented by: KEYONA Vancomycin HCl (Pharmacy To Dose - Vancomycin) 1 dose .XX ASDIRECTED [facility] Zolpidem Tartrate (Zolpidem 5 Mg Tab) 5 mg PO BEDTIME PRN PRN Reason: Sleep Last Admin: 11/25/20 23:10 Dose: 5 mg Documented by: DONI Assessment/Plan Comment:: This is a 50-year-old white male with past medical history of hypertension, hyperlipidemia, history of OH with stent placement, heart failure with unknown EF, prostate disorder, longstanding type 2 diabetes, medical nonadherence to treatment, diabetic peripheral neuropathy on all extremities, cyst on left kidney, history of cancer in the right kidney, history of hep C infection, anxiety, nicotine dependence, and chronic pain syndrome who presents to the emergency department last night for 2-week history of left foot infection and was diagnosed with acute osteomyelitis via CT scan with necrotic toe. Assessment: Acute: Acute osteomyelitis of the second toe involving at least the middle and distal phalanges with necrosis Leukocytosis with WBC 11.1; now resolved Hyperglycemia with type 2 diabetes; presents with a glucose of 196 Hypocalcemia with non-corrected calcium level of 7.9 Hypomagnesemia with magnesium of 1.7 Elevated alkaline phosphatase of 122 Elevated CRP of 6.1; now 4.9 Hypoalbuminemia with albumin of 2.1 Medical nonadherence to treatment Nicotine dependence; chews tobacco product daily Chronic: Hypertension Hyperlipidemia History of OH with stent placement Heart failure with unknown EF Prostate disorder Longstanding type 2 diabetes Peripheral neuropathy Cyst on left kidney Right kidney cancer Hepatitis C infection Chronic pain syndrome Nicotine dependence Anxiety Medical nonadherence to treatment Plan: Patient was admitted overnight on medical floor Continue empiric IV antibiotics with zosyn and vancomycin per pharmacy dose Routine a.m. labs Counseled on nicotine dependence Offered Nicotine patch daily Accu-Chek before meals with insulin sliding scale Hold Metformin for now Heart healthy and ADA diet DVT/GI prophylaxis Goal of treatment: Transfer to acute hospital for our level of care since we do not have general surgery orthopedic services CODE STATUS is full
[2020-11-26] MEDS: HYDROmorphone 0.5 MG/0.5 ML Syringe IVPUSH PRN ×2 (08:36→12:02)
[2020-11-26] MEDS: Insulin Lispro 100 Units/ML 3 ML Vial SUBCUT SCH ×2 (08:39→12:01)
[2020-11-26] MEDS ORDERED: Famotidine 20 MG Tab PO SCH (09:00)
--- NOTE | 2020-11-26 10:24 | PCM.DCSUM1 ---
Discharge Summary - Hospital Course Brief History: This is a 50-year-old white male with past medical history of hypertension, hyperlipidemia, history of DE with stent placement, heart failure with unknown EF, prostate disorder, longstanding type 2 diabetes, medical nonadherence to treatment, diabetic peripheral neuropathy on all extremities, cyst on left kidney, history of cancer in the right kidney, history of hep C infection, anxiety, nicotine dependence, and chronic pain syndrome who presents to the emergency department last night with 2-week history of left foot infection and was diagnosed with acute osteomyelitis with necrotic toe. Diagnosis: Stroke: No Modified [place] Scale: No Symptoms at All Modified [place] Scale Score: 0 - Discharge Data Discharge Date: 11/26/20 Discharge Disposition: DC/Tfer to Acute Hospital 02 Condition: Good - Referral to Home Health Primary Care Physician: PCP None - Patient Summary/Data Operative Procedure(s) Performed: None Complications: None Consults: Consultations 11/25/20 22:12 Consult to Case Management/[employer] Worker [CONS] Routine Consult to Diabetic Nurse Specialist [CONS] Routine 11/25/20 22:39 Consult to Dietary [Consult to Social Economist] [CONS] Routine Labs Pending at D/C: None Recommended Follow-up Testing/Procedures: Need orthopedic services due to acute osteomyelitis Planned Operative Procedure(s) after DC: Possible amputation the left second digit due to acute osteomyelitis with necrosis Hospital Course: Patient was admitted overnight for treatment of acute osteomyelitis with necrotic left toe. Patient received empiric IV antibiotic with zosyn and vancomycin for initial treatment. He is hemodynamically stable and did not look septic. While he was in the emergency department, the attending provider attempted to ship him out due to no general surgery or orthopedic services here in this hospital. Unfortunately he was not successful. Therefore the patient was admitted to our floor for continued treatment. This morning we attempted to ship him out. We had no success with [facility] or [facility]. However [facility] in [place] was kind enough to help us out once bed opens up this afternoon. Patient will be admitted under the services Dr. Styles, hospitalist attending. The patient will leave the facility via ground once transportation is available. - Patient Instructions Diet: Heart Healthy Diet, Diabetic Diet Activity: As Tolerated Driving: Do Not Drive Showering/Bathing: No Showering Wound/Incision Care: Keep Operative Site/Wound Site Clean and Dry, Change Dressing Daily Notify Provider of: Fever, Increased Pain, Swelling and Redness, Drainage, Nausea and/or Vomiting - Discharge Plan *PRESCRIPTION DRUG MONITORING PROGRAM REVIEWED*: Not Applicable *COPY OF PRESCRIPTION DRUG MONITORING REPORT IN PATIENT TOREY: Not Applicable Home Medications: Home Meds . [No Known Home Meds] 11/26/20 [History] Oxygen Therapy Mode: Room Air Referrals: PCP,None [Primary Care Provider] - - Discharge Summary/Plan Comment DC Time >30 min.: Yes (> 1 hrs) Total # of Minutes for Discharge Time: > 1 hrs to include transfer coordination and follow-up calls. Discharge Summary/Plan Comment: Transfer to [facility] for upper level of care. Patient will be needing orthopedic services due to acute osteomyelitis with necrotic left toe. He will be admitted under the services of Dr. Styles, hospitalist attending - General Info Date of Service: 11/26/20 Admission Dx/Problem (Free Text: Admission Diagnosis/Problem Admission Diagnosis/Problem Diabetic foot infection Subjective Update: No overnight or acute issues except for throbbing foot pain. He denies having fever or chills. No chest pain or shortness of breath. No GI/ complaints. Functional Status: Reports: Tolerating Diet, Ambulating, Urinating. Denies: Pain Controlled, New Symptoms - Review of Systems General: Denies: Fever, Weakness, Fatigue, Malaise, Chills HEENT: Reports: No Symptoms Pulmonary: Denies: Shortness of Breath, Sputum Cardiovascular: Denies: Palpitations, Orthopnea, Lightheadedness Gastrointestinal: Denies: Abdominal Pain, Nausea, Vomiting Genitourinary: Denies: Frequency, Burning Musculoskeletal: Reports: Leg Pain Skin: Denies: Cyanosis, Diaphoresis, Dryness, Pruritis, Rash Neurological: Denies: Confusion, Dizziness, Tremors, Trouble Speaking, Weakness Psychiatric: Denies: Anxiety, Agitation, Hallucinations, Suicidal Ideation, Homicidal Ideation - Patient Data Vitals - Most Recent: Last Vital Signs Temp 36.7 C 11/26/20 08:00 Pulse 72 11/26/20 08:00 Resp 17 11/26/20 08:00 BP 130/72 11/25/20 22:12 Pulse Ox 98 11/26/20 08:00 Weight - Most Recent: 77.111 kg I&O - Last 24 hours: Intake & Output 11/25/20 11/26/20 11/26/20 22:59 06:59 14:59 Intake Total 850 8046 705 Output Total 700 Balance 850 6565 705 Lab Results - Last 24 hrs: Laboratory Results - last 24 hr 11/25/20 11/25/20 11/25/20 Range/Units 19:23 19:23 19:23 WBC 11.1 H (5.0-10.0) 10^3/uL RBC 3.97 L (4.6-6.2) 10^6/uL Hgb 11.7 L (14.0-18.0) g/dL Hct 35.4 L (40.0-54.0) % MCV 89.2 D (80-100) fL MCH 29.5 (27.0-34.0) pg MCHC 33.1 (33.0-35.0) g/dL Plt Count 332 (150-450) 10^3/uL Neut % (Auto) 72.7 (42.2-75.2) % Lymph % (Auto) 15.4 L (20.5-50.1) % [place] % (Auto) 9.1 H (2-8) % Eos % (Auto) 2.6 (1.0-3.0) % Baso % (Auto) 0.2 (0.0-1.0) % PT (9.0-12.0) SEC INR (0.9-1.2) APTT (22.0-34.0) SEC Sodium 136 (136-145) mmol/L Potassium 3.9 (3.5-5.1) mmol/L Chloride 101 (98-107) mmol/L Carbon Dioxide 31 (21-32) mmol/L Anion Gap 7.9 (7-13) mEq/L BUN 17 (7-18) mg/dL Creatinine 0.84 (0.70-1.30) mg/dL Est Cr Clr Drug Dosing TNP Estimated GFR (MDRD) > 60 BUN/Creatinine Ratio 20.2 (No establ ref range) Glucose 196 H (70-99) mg/dL POC Glucose (70-99) mg/dL Lactic Acid 1.4 (0.4-2.0) mmol/L Calcium 8.4 L (8.5-10.1) mg/dL Magnesium (1.8-2.4) mg/dL Total Bilirubin 0.2 (0.2-1.0) mg/dL AST 16 (15-37) U/L ALT 20 (16-63) U/L Alkaline Phosphatase 122 H (46-116) U/L C-Reactive Protein 6.1 H (0.0-0.9) mg/dL Total Protein 7.0 (6.4-8.2) g/dL Albumin 2.1 L (3.4-5.0) g/dL Globulin 4.9 Albumin/Globulin Ratio 0.43 Urine Color (YELLOW) Urine Appearance (CLEAR) Urine pH (5.0-9.0) Ur Specific [place] (1.005-1.030) Urine Protein (NEGATIVE) Urine Glucose (UA) (NEGATIVE) Urine Ketones (NEGATIVE) Urine Occult Blood (NEGATIVE) Urine Nitrite (NEGATIVE) Urine Bilirubin (NEGATIVE) Urine Urobilinogen (0.2-1.0) mg/dL Ur Leukocyte Esterase (NEGATIVE) Urine RBC (0-5) /HPF Urine WBC (0-5/HPF) /HPF Ur Epithelial Cells (NOT SEEN) /HPF Amorphous Sediment (NOT SEEN) /HPF Urine Bacteria (0-FEW/HPF) /HPF Urine Mucus (NOT SEEN) /LPF SARS-CoV-2 RNA (MIKE) (NEGATIVE) 11/25/20 11/25/20 11/25/20 Range/Units 19:23 19:30 20:03 WBC (5.0-10.0) 10^3/uL RBC (4.6-6.2) 10^6/uL Hgb (14.0-18.0) g/dL Hct (40.0-54.0) % MCV (80-100) fL MCH (27.0-34.0) pg MCHC (33.0-35.0) g/dL Plt Count (150-450) 10^3/uL Neut % (Auto) (42.2-75.2) % Lymph % (Auto) (20.5-50.1) % [place] % (Auto) (2-8) % Eos % (Auto) (1.0-3.0) % Baso % (Auto) (0.0-1.0) % PT 9.6 (9.0-12.0) SEC INR 1.0 (0.9-1.2) APTT 27.2 (22.0-34.0) SEC Sodium (136-145) mmol/L Potassium (3.5-5.1) mmol/L Chloride (98-107) mmol/L Carbon Dioxide (21-32) mmol/L Anion Gap (7-13) mEq/L BUN (7-18) mg/dL Creatinine (0.70-1.30) mg/dL Est Cr Clr Drug Dosing Estimated GFR (MDRD) BUN/Creatinine Ratio (No establ ref range) Glucose (70-99) mg/dL POC Glucose (70-99) mg/dL Lactic Acid (0.4-2.0) mmol/L Calcium (8.5-10.1) mg/dL Magnesium (1.8-2.4) mg/dL Total Bilirubin (0.2-1.0) mg/dL AST (15-37) U/L ALT (16-63) U/L Alkaline Phosphatase (46-116) U/L C-Reactive Protein (0.0-0.9) mg/dL Total Protein (6.4-8.2) g/dL Albumin (3.4-5.0) g/dL Globulin Albumin/Globulin Ratio Urine Color Yellow (YELLOW) Urine Appearance Slightly cloudy (CLEAR) Urine pH 6.0 (5.0-9.0) Ur Specific [place] 1.025 (1.005-1.030) Urine Protein 100 H (NEGATIVE) Urine Glucose (UA) Negative (NEGATIVE) Urine Ketones Negative (NEGATIVE) Urine Occult Blood Trace-intact H (NEGATIVE) Urine Nitrite Negative (NEGATIVE) Urine Bilirubin Negative (NEGATIVE) Urine Urobilinogen 1.0 (0.2-1.0) mg/dL Ur Leukocyte Esterase Negative (NEGATIVE) Urine RBC 5-10 H (0-5) /HPF Urine WBC 0-5 (0-5/HPF) /HPF Ur Epithelial Cells Rare (NOT SEEN) /HPF Amorphous Sediment Rare (NOT SEEN) /HPF Urine Bacteria Rare (0-FEW/HPF) /HPF Urine Mucus Few H (NOT SEEN) /LPF SARS-CoV-2 RNA (MIKE) Negative (NEGATIVE) 11/26/20 11/26/20 11/26/20 Range/Units 06:20 06:20 06:20 WBC 8.5 (5.0-10.0) 10^3/uL RBC 3.45 L (4.6-6.2) 10^6/uL Hgb 10.0 L D (14.0-18.0) g/dL Hct 31.4 L (40.0-54.0) % MCV 91.0 (80-100) fL MCH 29.0 (27.0-34.0) pg MCHC 31.8 L (33.0-35.0) g/dL Plt Count 301 (150-450) 10^3/uL Neut % (Auto) 62.4 (42.2-75.2) % Lymph % (Auto) 24.0 (20.5-50.1) % [place] % (Auto) 9.2 H (2-8) % Eos % (Auto) 3.9 H (1.0-3.0) % Baso % (Auto) 0.5 (0.0-1.0) % PT (9.0-12.0) SEC INR (0.9-1.2) APTT (22.0-34.0) SEC Sodium 138 (136-145) mmol/L Potassium 3.9 (3.5-5.1) mmol/L Chloride 105 (98-107) mmol/L Carbon Dioxide 29 (21-32) mmol/L Anion Gap 7.9 (7-13) mEq/L BUN 15 (7-18) mg/dL Creatinine 0.87 (0.70-1.30) mg/dL Est Cr Clr Drug Dosing 104.89 Estimated GFR (MDRD) > 60 BUN/Creatinine Ratio (No establ ref range) Glucose 182 H (70-99) mg/dL POC Glucose (70-99) mg/dL Lactic Acid 0.7 (0.4-2.0) mmol/L Calcium 7.9 L (8.5-10.1) mg/dL Magnesium 1.7 L (1.8-2.4) mg/dL Total Bilirubin (0.2-1.0) mg/dL AST (15-37) U/L ALT (16-63) U/L Alkaline Phosphatase (46-116) U/L C-Reactive Protein 4.9 H (0.0-0.9) mg/dL Total Protein (6.4-8.2) g/dL Albumin (3.4-5.0) g/dL Globulin Albumin/Globulin Ratio Urine Color (YELLOW) Urine Appearance (CLEAR) Urine pH (5.0-9.0) Ur Specific [place] (1.005-1.030) Urine Protein (NEGATIVE) Urine Glucose (UA) (NEGATIVE) Urine Ketones (NEGATIVE) Urine Occult Blood (NEGATIVE) Urine Nitrite (NEGATIVE) Urine Bilirubin (NEGATIVE) Urine Urobilinogen (0.2-1.0) mg/dL Ur Leukocyte Esterase (NEGATIVE) Urine RBC (0-5) /HPF Urine WBC (0-5/HPF) /HPF Ur Epithelial Cells (NOT SEEN) /HPF Amorphous Sediment (NOT SEEN) /HPF Urine Bacteria (0-FEW/HPF) /HPF Urine Mucus (NOT SEEN) /LPF SARS-CoV-2 RNA (IMKE) (NEGATIVE) 11/26/20 Range/Units 08:20 WBC (5.0-10.0) 10^3/uL RBC (4.6-6.2) 10^6/uL Hgb (14.0-18.0) g/dL Hct (40.0-54.0) % MCV (80-100) fL MCH (27.0-34.0) pg MCHC (33.0-35.0) g/dL Plt Count (150-450) 10^3/uL Neut % (Auto) (42.2-75.2) % Lymph % (Auto) (20.5-50.1) % [place] % (Auto) (2-8) % Eos % (Auto) (1.0-3.0) % Baso % (Auto) (0.0-1.0) % PT (9.0-12.0) SEC INR (0.9-1.2) APTT (22.0-34.0) SEC Sodium (136-145) mmol/L Potassium (3.5-5.1) mmol/L Chloride (98-107) mmol/L Carbon Dioxide (21-32) mmol/L Anion Gap (7-13) mEq/L BUN (7-18) mg/dL Creatinine (0.70-1.30) mg/dL Est Cr Clr Drug Dosing Estimated GFR (MDRD) BUN/Creatinine Ratio (No establ ref range) Glucose (70-99) mg/dL POC Glucose 163 H (70-99) mg/dL Lactic Acid (0.4-2.0) mmol/L Calcium (8.5-10.1) mg/dL Magnesium (1.8-2.4) mg/dL Total Bilirubin (0.2-1.0) mg/dL AST (15-37) U/L ALT (16-63) U/L Alkaline Phosphatase (46-116) U/L C-Reactive Protein (0.0-0.9) mg/dL Total Protein (6.4-8.2) g/dL Albumin (3.4-5.0) g/dL Globulin Albumin/Globulin Ratio Urine Color (YELLOW) Urine Appearance (CLEAR) Urine pH (5.0-9.0) Ur Specific [place] (1.005-1.030) Urine Protein (NEGATIVE) Urine Glucose (UA) (NEGATIVE) Urine Ketones (NEGATIVE) Urine Occult Blood (NEGATIVE) Urine Nitrite (NEGATIVE) Urine Bilirubin (NEGATIVE) Urine Urobilinogen (0.2-1.0) mg/dL Ur Leukocyte Esterase (NEGATIVE) Urine RBC (0-5) /HPF Urine WBC (0-5/HPF) /HPF Ur Epithelial Cells (NOT SEEN) /HPF Amorphous Sediment (NOT SEEN) /HPF Urine Bacteria (0-FEW/HPF) /HPF Urine Mucus (NOT SEEN) /LPF SARS-CoV-2 RNA (MIKE) (NEGATIVE) Med Orders - Current: Current Medications Acetaminophen (Acetaminophen 325 Mg Tab) 650 mg PO Q4H PRN PRN Reason: Pain (Mild 1-3)/fever Hydrocodone Bitart/Acetaminophen (Acetaminophen/Hydrocodone 325-10 Mg Tab) 0.5 tab PO Q4H PRN PRN Reason: Pain (moderate 4-6) Last Admin: 11/26/20 06:03 Dose: 0.5 tab Documented by: Albuterol/Ipratropium (Albuterol/Ipratropium 3.0-0.5 Mg/3 Ml Neb Soln) 3 ml NEB Q4H PRN PRN Reason: shortness of breath/wheezing Dextrose/Water (50% Dextrose In Water 50 Ml Syringe) 50 ml IVPUSH Q15M PRN PRN Reason: Hypoglycemia Famotidine (Famotidine 20 Mg Tab) 20 mg PO BID JEFFY Last Admin: 11/26/20 08:35 Dose: 20 mg Documented by: Glucagon (Glucagon,Human Recombinant 1 Mg Vial) 1 mg IM Q15M PRN PRN Reason: Hypoglycemia Heparin Sodium (Porcine) (Heparin Sodium 5,000 Units/Ml Vial) 5,000 units SUBCUT Q8HR [facility] Last Admin: 11/26/20 06:03 Dose: 5,000 units Documented by: Hydromorphone HCl (Hydromorphone 0.5 Mg/0.5 Ml Syringe) 0.5 mg IVPUSH Q2H PRN PRN Reason: Pain (severe 7-10) Last Admin: 11/26/20 08:36 Dose: 0.5 mg Documented by: Piperacillin Sod/Tazobactam (Sod 3.375 gm/ Sodium Chloride) 100 mls @ 200 mls/hr IV Q6H [facility] Last Admin: 11/26/20 09:22 Dose: 200 mls/hr Documented by: Vancomycin HCl 1.25 gm/ Sodium (Chloride) 250 mls @ 166.667 mls/hr IV Q8H [facility] Last Admin: 11/26/20 04:11 Dose: 166.667 mls/hr Documented by: Insulin Human Lispro (Insulin Lispro 100 Units/Ml 3 Ml Vial) 0 unit SUBCUT TIDMEALS [facility]; Protocol Last Admin: 11/26/20 08:39 Dose: 2 units Documented by: Ketorolac Tromethamine (Ketorolac 30 Mg/Ml Sdv) 30 mg IVPUSH Q6H PRN PRN Reason: Pain (moderate 4-6) Nicotine (Nicotine 21 Mg/24 Hr Patch) 21 mg TRDERM DAILY PRN PRN Reason: Nicotine Dependence Ondansetron HCl (Ondansetron 4 Mg/2 Ml Sdv) 4 mg IVPUSH Q6H PRN PRN Reason: Nausea/Vomiting Polyethylene Glycol (Polyethylene Glycol 3350 Powder 17 Gm Packet) 17 gm PO DAILY PRN PRN Reason: Constipation Sodium Chloride (Sodium Chloride 0.9% 10 Ml Syringe) 10 ml FLUSH ASDIRECTED PRN PRN Reason: Keep Vein Open Last Admin: 11/25/20 19:44 Dose: 10 ml Documented by: Vancomycin HCl (Pharmacy To Dose - Vancomycin) 1 dose .XX ASDIRECTED [facility] Zolpidem Tartrate (Zolpidem 5 Mg Tab) 5 mg PO BEDTIME PRN PRN Reason: Sleep Last Admin: 11/25/20 23:10 Dose: 5 mg Documented by: Discontinued Medications Hydromorphone HCl (Hydromorphone 1 Mg/Ml Syringe) 1 mg IVPUSH ONETIME ONE Stop: 11/25/20 21:53 Last Admin: 11/25/20 21:58 Dose: 1 mg Documented by: Hydromorphone HCl (Hydromorphone 1 Mg/Ml Syringe) 0.5 mg IVPUSH Q2H PRN PRN Reason: Pain (severe 7-10) Last Admin: 11/26/20 06:04 Dose: 0.5 mg Documented by: Sodium Chloride (Normal Saline) 1,000 mls @ 999 mls/hr IV .BOLUS ONE Stop: 11/25/20 20:20 Last Infusion: 11/25/20 20:39 Dose: 100 mls/hr Documented by: Piperacillin Sod/Tazobactam (Sod 4.5 gm/ Sodium Chloride) 100 mls @ 200 mls/hr IV ONETIME ONE Stop: 11/25/20 19:52 Last Admin: 11/25/20 19:42 Dose: 200 mls/hr Documented by: Vancomycin HCl 1,500 mg/ (Sodium Chloride) 500 mls @ 333.333 mls/hr IV ONETIME ONE Stop: 11/25/20 20:53 Last Admin: 11/25/20 19:45 Dose: 333.333 mls/hr Documented by: Vancomycin HCl 1 mg/ Sodium (Chloride) 100 mls @ 100 mls/hr IV Q8H JEFFY Iopamidol (Iopamidol 612 Mg/Ml 100 Ml Bottle) 100 ml IVPUSH ONETIME ONE Stop: 11/25/20 20:26 Last Admin: 11/25/20 21:03 Dose: 100 ml Documented by: - Exam Quality Assessment: Reports: DVT Prophylaxis. Denies: Supplemental Oxygen General: Reports: Alert, Oriented, Cooperative, No Acute Distress HEENT: Reports: Pupils Equal, Pupils Reactive, EOMI, Mucous Membr. Moist/[place] Neck: Reports: Supple Lungs: Reports: Clear to Auscultation, Normal Respiratory Effort Cardiovascular: Reports: Regular Rate, Regular Rhythm GI/Abdominal Exam: Normal Bowel Sounds, Soft, Non-Tender, No Organomegaly, No Distention, No Abnormal Bruit, No Mass, Pelvis Stable (Male) Exam: Deferred Rectal (Males) Exam: Deferred Back Exam: Reports: Normal Inspection, Full Range of Motion Extremities: Normal Range of Motion, Normal Capillary Refill, Other (Gangrenous second digit of his left foot with a foul smell) Skin: Reports: Warm, Dry Wound/Incisions: Reports: Healing Well Neurological: Reports: No New Focal Deficit, Normal Gait, Other (Has baseline peripheral neuropathy) Psy/Mental Status: Reports: Alert, Normal Affect, Normal Mood
--- NOTE | 2020-11-26 10:27 | PCM.SN.2 ---
- Free Text/Narrative Note: 1025: Called [facility] in [place] for transfer however given unable to take him as there were at least over 10 people ahead of him. Called [facility] but they would only take if it STEMI, trauma, or stroke patients. However we were jayjay to get a hold of [facility] in [place]. We were told there will bed opening this afternoon at about [id number]. Informed patient about the plan and he is agreeing to it. We will continue to control his pain with medications. Time Documentation
[2020-11-26] MEDS ORDERED: Magnesium Sulfate/Water 2 GM in Premix Bag 1 BAG IV ONE (14:30)
[2020-11-26 16:01] VITALS: BP 121/72; PULSE 77
[2020-11-26] MEDS ORDERED: Gabapentin 100 MG Cap PO SCH (21:00)
== END 2020-11-26 16:30 | DRG 540 ==
LOC: DL.ED 16:38 → DL.MS 21:45 → EEVIPCON 21:45
PROVIDERS: ADMIT Internal Medicine; ATTEND Internal Medicine
DX: M86.172 Other acute osteomyelitis, left ankle and foot (principal); I96 Gangrene, not elsewhere classified; E78.5 Hyperlipidemia, unspecified; I50.9 Heart failure, unspecified; N42.9 Disorder of prostate, unspecified; E11.42 Type 2 diabetes mellitus with diabetic polyneuropathy; F41.9 Anxiety disorder, unspecified; N28.1 Cyst of kidney, acquired; G89.4 Chronic pain syndrome; F17.210 Nicotine dependence, cigarettes, uncomplicated; E78.00 Pure hypercholesterolemia, unspecified; I11.0 Hypertensive heart disease with heart failure; E11.21 Type 2 diabetes mellitus with diabetic nephropathy; E11.65 Type 2 diabetes mellitus with hyperglycemia; E83.51 Hypocalcemia; E83.42 Hypomagnesemia; R74.8 Abnormal levels of other serum enzymes; Z20.822 Contact with and (suspected) exposure to COVID-19; I25.2 Old myocardial infarction; Z95.5 Presence of coronary angioplasty implant and graft; Z91.19 Patient's noncompliance with other medical treatment and regimen; Z85.528 Personal history of other malignant neoplasm of kidney; Z87.01 Personal history of pneumonia (recurrent); Z86.010 Personal history of colon polyps
CPT/HCPCS: 36415; 73701; 80048; 80053; 81001; 82947; 83605; 83735; 84145; 85025; 85610; 85730; 86140; 87040; 87070; 87077; 87186; 87205; 96365; 96367; 99285-25; A9270-GY; J1170; J1644; J1815-GY; J2543; J3370; J3475; J7030; J7040; J7050; Q9967; U0002

== ENCOUNTER 2021-03-09 03:57 | Emergency (ER) | payer MEDICAID ==
[2021-03-09 04:23] LABS: ANION GAP 13.9 mEq/L (7-13); CHLORIDE,CL 98 mmol/L (98-107); SODIUM,NA 133 mmol/L (136-145)
[2021-03-09 04:26] LABS: CORONAVIRUS COVID-19 NAA NEGATIVE (NEGATIVE)
[2021-03-09] MEDS ORDERED: Iopamidol 755 Mg/ML 100 ML Bottle IVPUSH ONE (04:28)
[2021-03-09] MEDS ORDERED: fentaNYL 100 MCG/2 ML SDV IVPUSH ONE ×2 (04:29→06:48)
[2021-03-09] MEDS ORDERED: Ondansetron 4 MG/2 ML SDV IVPUSH ONE (04:36)
[2021-03-09] MEDS ORDERED: Sodium Chloride 0.9% 1,000 ML IV ONE (04:37)
[2021-03-09] MEDS ORDERED: Acetaminophen 325 MG Tab PO ONE (05:07)
[2021-03-09] MEDS ORDERED: Magnesium Sulfate/Water 2 GM in Premix Bag 1 BAG IV ONE (05:40)
[2021-03-09] MEDS ORDERED: Azithromycin 250 MG Tab PO ONE (06:07)
[2021-03-09] MEDS ORDERED: methylPREDNISolone Sodium Succinate 125 MG/2 ML SDV IVPUSH ONE (06:17)
[2021-03-09 06:33] VITALS: BP 123/80
[2021-03-09] MEDS ORDERED: Ibuprofen 600 MG Tab PO ONE (06:47)
[2021-03-09 07:15] VITALS: PULSE 86
== END 2021-03-09 08:45 | disposition home or self-care (01) ==
LOC: DL.ED 03:57
DX: J11.1 Influenza due to unidentified influenza virus with other respiratory manifestations (principal); R93.5 Abnormal findings on diagnostic imaging of other abdominal regions, including retroperitoneum; I11.0 Hypertensive heart disease with heart failure; I50.9 Heart failure, unspecified; I25.2 Old myocardial infarction; E11.21 Type 2 diabetes mellitus with diabetic nephropathy; Z20.822 Contact with and (suspected) exposure to COVID-19
CPT/HCPCS: 0240U; 36415; 71260; 80053; 82150; 83605; 83690; 83735; 83880; 84484; 85025; 85379; 85610; 87040; 93005; 96365; 96366; 96375; 96376; 99285; A9270; J2405; J2930; J3010; J3475; J7030; Q9967; 93010; 99284

== ENCOUNTER 2021-10-29 14:36 | Emergency (ER) | payer MEDICAID ==
[2021-10-29 15:28] LABS: ANION GAP 11.7 mEq/L (7-13); CHLORIDE,CL 107 mmol/L (98-107); SODIUM,NA 140 mmol/L (136-145)
[2021-10-29 15:34] LABS: ESTIMATED GFR 90 mL/min (>=60)
== END 2021-10-29 15:20 | disposition left against medical advice (07) ==
LOC: DL.ED 14:36
DX: S22.41XA Multiple fractures of ribs, right side, initial encounter for closed fracture (principal); F10.920 Alcohol use, unspecified with intoxication, uncomplicated; E78.00 Pure hypercholesterolemia, unspecified; E11.21 Type 2 diabetes mellitus with diabetic nephropathy; I11.0 Hypertensive heart disease with heart failure; I50.9 Heart failure, unspecified; I25.2 Old myocardial infarction; Z95.5 Presence of coronary angioplasty implant and graft; V18.2XXA Unspecified pedal cyclist injured in noncollision transport accident in nontraffic accident, initial encounter
CPT/HCPCS: 36415; 70450; 71250; 72125; 80053; 80307; 82140; 82150; 83605; 83690; 83735; 84484; 85025; 85610; 85730; 86140; 86850; 86900; 86901; 99284

== ENCOUNTER 2022-03-27 09:49 | Emergency (ER) | payer MEDICAID ==
[2022-03-27] MEDS ORDERED: Ondansetron 4 MG/2 ML SDV IVPUSH ONE ×2 (09:54→11:32)
[2022-03-27 09:58] VITALS: BP 145/93; PULSE 100
[2022-03-27] MEDS ORDERED: Pantoprazole 40 MG Vial IVPUSH ONE (10:09)
[2022-03-27] MEDS ORDERED: Pantoprazole 40 MG in Sodium Chloride 0.9% 100 ML IV SCH (10:10)
[2022-03-27] MEDS ORDERED: HYDROmorphone 0.5 MG/0.5 ML Syringe IVPUSH ONE (10:10)
[2022-03-27 10:46] LABS: ANION GAP 13.3 mEq/L (7-13); CHLORIDE,CL 96 mmol/L (98-107); SODIUM,NA 136 mmol/L (136-145)
[2022-03-27 10:54] LABS: ESTIMATED GFR 82 mL/min (>=60)
[2022-03-27 11:04] LABS: CORONAVIRUS COVID-19 NAA NEGATIVE (NEGATIVE); RESPIRATORY SYNCYTIAL VIR NAA NEGATIVE (NEGATIVE)
== END 2022-03-27 11:43 | disposition home or self-care (01) ==
LOC: DL.ED 09:49
DX: K25.4 Chronic or unspecified gastric ulcer with hemorrhage (principal); I11.0 Hypertensive heart disease with heart failure; I50.9 Heart failure, unspecified; E78.00 Pure hypercholesterolemia, unspecified; I25.2 Old myocardial infarction; E11.40 Type 2 diabetes mellitus with diabetic neuropathy, unspecified; Z95.5 Presence of coronary angioplasty implant and graft; Z20.822 Contact with and (suspected) exposure to COVID-19
CPT/HCPCS: 0241U; 36415; 80053; 80307; 82150; 82271; 83605; 83690; 85025; 85610; 86140; 87081; 87430; 96365; 96375; 96376; 99283; 99284; C9113; J1170; J2405; J3490

== ENCOUNTER 2022-04-12 16:19 | Observation (INO) | payer MEDICAID ==
[~2022-04-12 16:19] MED LIST: MVI, Adult with Vitamin K 10 ML, Folic Acid 1 MG, Thiamine 100 MG in Lactated Ringers 1... IV ONE; Ondansetron 4 MG/2 ML SDV IVPUSH ONE
[2022-04-12] MEDS ORDERED: Octreotide 100 MCG/ML SDV SUBCUT ONE (16:20)
[2022-04-12] MEDS ORDERED: Pantoprazole 40 MG in Sodium Chloride 0.9% 100 ML IV ONE (16:20)
[2022-04-12] MEDS ORDERED: Pantoprazole 40 MG Vial IVPUSH ONE (16:23)
[2022-04-12] MEDS ORDERED: Octreotide 100 MCG in Sodium Chloride 0.9% 99 ML IV SCH (16:30)
[2022-04-12] MEDS ORDERED: Pantoprazole 40 MG in Sodium Chloride 0.9% 100 ML IV SCH (16:30)
[2022-04-12] MEDS: Sodium Chloride 0.9% 10 ML Syringe FLUSH PRN ×2 (16:37→20:47)
[2022-04-12 17:08] LABS: ANION GAP 10.7 mEq/L (7-13); CHLORIDE,CL 101 mmol/L (98-107); SODIUM,NA 138 mmol/L (136-145)
[2022-04-12 17:11] LABS: ACETAMINOPHEN 0 ug/mL (10-30 (Therapeutic)); ESTIMATED GFR 76 mL/min (>=60)
[2022-04-12 17:12] LABS: PTT,PARTIAL THROMBOPLSTIN TIME 23.6 SEC (22.0-34.0)
[2022-04-12] MEDS ORDERED: GI Cocktail Oral Solution 30 ML PO ONE (18:14)
[2022-04-12 18:38] LABS: AMPHETAMINES,URINE NEGATIVE (NEGATIVE); BARBITURATES,URINE NEGATIVE (NEGATIVE); BENZODIAZEPINE,URINE NEGATIVE (NEGATIVE); MDMA (ECSTASY), URINE NEGATIVE (NEGATIVE); METHADONE,URINE NEGATIVE (NEGATIVE); METHAMPHETAMINES,URINE POSITIVE (NEGATIVE); OPIATES,URINE NEGATIVE (NEGATIVE); OXYCODONE,URINE NEGATIVE (NEGATIVE); PHENCYCLIDINE,URINE NEGATIVE (NEGATIVE); TCA,URINE NEGATIVE (NEGATIVE)
[2022-04-12] MEDS ORDERED: Bisacodyl 5 MG Tab PO PRN (19:37)
[2022-04-12] MEDS ORDERED: Acetaminophen 325 MG Tab PO PRN (19:37)
[2022-04-12] MEDS ORDERED: Magnesium Hydroxide 400 MG/5 ML Susp 30 ML Cup PO PRN (19:37)
[2022-04-12] MEDS ORDERED: Ondansetron 4 MG/2 ML SDV IVPUSH PRN (19:37)
[2022-04-12] MEDS ORDERED: Polyethylene Glycol 3350 Powder 17 GM Packet PO PRN (19:37)
[2022-04-12] MEDS ORDERED: Albuterol/Ipratropium 3.0-0.5 MG/3 ML Neb Soln NEB PRN (19:37)
[2022-04-12] MEDS ORDERED: cloNIDine 0.1 MG Tab PO PRN (20:19)
[2022-04-12] MEDS ORDERED: LORazepam 2 MG/ML SDV IV PRN (20:19)
[2022-04-12] MEDS ORDERED: Nicotine 21 MG/24 Hr Patch TRDERM PRN (20:19)
[2022-04-12] MEDS ORDERED: Haloperidol Lactate 5 MG/ML SDV IM PRN (20:19)
[2022-04-12] MEDS ORDERED: hydrALAZINE 20 MG/ML SDV IVPUSH PRN (20:21)
[2022-04-12] MEDS ORDERED: Metoprolol Tartrate 5 MG/5 ML SDV IVPUSH PRN (20:21)
[2022-04-12] MEDS ORDERED: Glucagon,Human Recombinant 1 MG Vial IM PRN (20:23)
[2022-04-12] MEDS ORDERED: 50% Dextrose in Water 50 ML Syringe IVPUSH PRN (20:23)
[2022-04-12] MEDS: Sucralfate Suspension 1 GM/10 ML Cup PO SCH (20:35)
[2022-04-12] MEDS: LORazepam 0.5 MG Tab PO PRN ×2 (21:01→22:24)
[2022-04-12] MEDS: Acetaminophen/oxyCODONE 325-5 MG Tab PO PRN (21:02)
[2022-04-13] MEDS: Acetaminophen/oxyCODONE 325-5 MG Tab PO PRN ×2 (02:25→08:07)
[2022-04-13] MEDS: LORazepam 0.5 MG Tab PO PRN ×2 (02:26→07:12)
[2022-04-13] MEDS: Sucralfate Suspension 1 GM/10 ML Cup PO SCH ×2 (06:17→11:50)
[2022-04-13 06:51] LABS: ANION GAP 8.7 mEq/L (7-13)
[2022-04-13] MEDS: Insulin Lispro 100 Units/ML 3 ML Vial SUBCUT SCH ×2 (08:07→11:51)
[2022-04-13] MEDS ORDERED: Pantoprazole 40 MG Vial IVPUSH SCH (09:00)
[2022-04-13] MEDS ORDERED: Folic Acid 1 MG Tab PO SCH (09:00)
[2022-04-13] MEDS ORDERED: Thiamine 100 MG Tab PO SCH (09:00)
[2022-04-13] MEDS ORDERED: Multivitamin Tab PO SCH (09:00)
[2022-04-13] MEDS ORDERED: Iopamidol 612 MG/ML 100 ML Bottle IVPUSH ONE (09:45)
[2022-04-13 12:02] VITALS: BP 131/74; PULSE 81
== END 2022-04-13 12:35 | disposition home or self-care (01) ==
LOC: DL.ED 16:19 → DL.MS 19:14
PROVIDERS: ADMIT Internal Medicine; ATTEND Internal Medicine
DX: K92.2 Gastrointestinal hemorrhage, unspecified (principal); I11.0 Hypertensive heart disease with heart failure; I50.9 Heart failure, unspecified; E78.00 Pure hypercholesterolemia, unspecified; E11.42 Type 2 diabetes mellitus with diabetic polyneuropathy; F41.9 Anxiety disorder, unspecified; F17.210 Nicotine dependence, cigarettes, uncomplicated; M86.9 Osteomyelitis, unspecified; I25.2 Old myocardial infarction; M19.011 Primary osteoarthritis, right shoulder; M19.012 Primary osteoarthritis, left shoulder; N28.89 Other specified disorders of kidney and ureter; Z79.899 Other long term (current) drug therapy; Z95.5 Presence of coronary angioplasty implant and graft
CPT/HCPCS: 36415; 71045; 73020-LT; 73020-RT; 74178; 80053; 80143; 80179; 80305-QW; 80307; 81001; 82150; 82271; 82272; 82947; 83540; 83550; 83605; 83690; 83735; 83880; 84484; 85014; 85018; 85025; 85610; 85730; 86140; 86850; 86900; 86901; 90686; 93005; 93010; 96365; 96366; 96367; 96368; 96372; 96375; 96376; 99284; 99285-25; A9270-GY; C9113; G0008; G0378; J1815-GY; J2354-JA; J2354-JB-GY; J2405; J3411; J3490; J7120; Q9967

== ENCOUNTER 2022-04-14 03:44 | Emergency (ER) | payer MEDICAID ==
[2022-04-14] MEDS ORDERED: Iopamidol 612 MG/ML 100 ML Bottle IVPUSH ONE (04:30)
[2022-04-14] MEDS ORDERED: Sodium Chloride 0.9% 1,000 ML IV ONE (04:44)
[2022-04-14] MEDS ORDERED: Ondansetron 4 MG/2 ML SDV IVPUSH ONE (04:44)
[2022-04-14 04:49] LABS: ANION GAP 12.7 mEq/L (7-13); CHLORIDE,CL 101 mmol/L (98-107); PTT,PARTIAL THROMBOPLSTIN TIME 24.1 SEC (22.0-34.0); SODIUM,NA 135 mmol/L (136-145)
[2022-04-14 04:53] LABS: ESTIMATED GFR 84 mL/min (>=60)
[2022-04-14 05:41] LABS: AMPHETAMINES,URINE NEGATIVE (NEGATIVE); BARBITURATES,URINE NEGATIVE (NEGATIVE); BENZODIAZEPINE,URINE POSITIVE (NEGATIVE); MDMA (ECSTASY), URINE NEGATIVE (NEGATIVE); METHADONE,URINE NEGATIVE (NEGATIVE); METHAMPHETAMINES,URINE POSITIVE (NEGATIVE); OPIATES,URINE NEGATIVE (NEGATIVE); OXYCODONE,URINE POSITIVE (NEGATIVE); PHENCYCLIDINE,URINE NEGATIVE (NEGATIVE); TCA,URINE NEGATIVE (NEGATIVE)
== END 2022-04-14 05:58 | disposition left against medical advice (07) ==
LOC: DL.ED 03:44
DX: S02.40FA Zygomatic fracture, left side, initial encounter for closed fracture (principal); S02.32XA Fracture of orbital floor, left side, initial encounter for closed fracture; S02.40DA Maxillary fracture, left side, initial encounter for closed fracture; F10.920 Alcohol use, unspecified with intoxication, uncomplicated; E11.21 Type 2 diabetes mellitus with diabetic nephropathy; I11.0 Hypertensive heart disease with heart failure; I50.9 Heart failure, unspecified; E78.00 Pure hypercholesterolemia, unspecified; I25.2 Old myocardial infarction; Z79.899 Other long term (current) drug therapy; W22.8XXA Striking against or struck by other objects, initial encounter
CPT/HCPCS: 36415; 70450; 70486; 71260; 72125; 74177; 80053; 80305; 80307; 82140; 83605; 85025; 85610; 85730; 86140; 86850; 86900; 86901; 96374; 96375; 99284; 99285; J1170; J2405; J3490; J7030; 96361

== ENCOUNTER 2022-04-14 06:49 | Emergency (ER) | payer MEDICAID ==
[2022-04-14 07:14] VITALS: BP 134/92; PULSE 100
[2022-04-14] MEDS ORDERED: Ondansetron 4 MG/2 ML SDV IV ONE (07:18)
[2022-04-14] MEDS ORDERED: Sodium Chloride 0.9% 10 ML Syringe FLUSH PRN (07:19)
[2022-04-14] MEDS ORDERED: HYDROmorphone 1 MG/ML Syringe IVPUSH ONE (07:19)
== END 2022-04-14 08:26 ==
LOC: DL.ED 06:49
DX: S02.40DA Maxillary fracture, left side, initial encounter for closed fracture (principal); S02.32XA Fracture of orbital floor, left side, initial encounter for closed fracture; S02.40FA Zygomatic fracture, left side, initial encounter for closed fracture; N28.89 Other specified disorders of kidney and ureter; F10.10 Alcohol abuse, uncomplicated; F19.10 Other psychoactive substance abuse, uncomplicated; I11.0 Hypertensive heart disease with heart failure; I50.9 Heart failure, unspecified; I25.2 Old myocardial infarction; E11.21 Type 2 diabetes mellitus with diabetic nephropathy; Z79.899 Other long term (current) drug therapy; Y04.0XXA Assault by unarmed brawl or fight, initial encounter
CPT/HCPCS: 96374; 96375; 99285; 99285-25; J1170; J2405; J3490

== ENCOUNTER 2023-07-11 16:03 | Emergency (ER) | payer BC, MEDICAID ==
[2023-07-11] MEDS ORDERED: Sodium Chloride 0.9% 10 ML Syringe FLUSH PRN (16:33)
[2023-07-11] MEDS: Aspirin 81 MG Tab.Chew PO ONE (16:51)
[2023-07-11 16:57] LABS: BASOPHILS PERCENT AUTO 0.5 % (0.0-1.0); EOSINOPHILS PERCENT AUTO 2.8 % (1.0-3.0); HEMATOCRIT 41.6 % (40.0-54.0); HEMOGLOBIN 13.8 g/dL (14.0-18.0); LYMPHOCYTES PERCENT AUTO 26.5 % (20.5-50.1); MEAN CORPUSCULAR HEMOGLOBIN 29.1 pg (27.0-34.0); MEAN CORPUSCULAR HGB CONC 33.2 g/dL (33.0-35.0); MEAN CORPUSCULAR VOLUME 87.8 fL (80-100); MONOCYTES PERCENT AUTO 9.8 % (2-8); NEUTROPHILS PERCENT AUTO 60.4 % (42.2-75.2); PLATELET COUNT,PLT 206 10^3/uL (150-450); RED BLOOD CELL COUNT 4.74 10^6/uL (4.6-6.2); WHITE BLOOD CELL COUNT,WBC 5.6 10^3/uL (5.0-10.0)
[2023-07-11 16:58] VITALS: PULSE 83
[2023-07-11 17:07] LABS: PROTHROMBIN TIME 9.9 SEC (9.0-12.0)
[2023-07-11 17:17] LABS: A/G RATIO 0.9; ALBUMIN 3.5 g/dL (3.4-5.0); ANION GAP 16.1 mEq/L (7-13); BILIRUBIN TOTAL 0.3 mg/dL (0.2-1.0); BUN/CREATININE RATIO 16.8 (No establ ref range); CALCIUM 8.5 mg/dL (8.5-10.1); CREATININE 1.13 mg/dL (0.70-1.30); EST CRCL DRUG DOSING (CG) 78.96 mL/min; POTASSIUM,K 4.1 mmol/L (3.5-5.1); PROTEIN TOTAL,TP 7.2 g/dL (6.4-8.2)
[2023-07-11] MEDS: Aspirin 81 MG Tab.Chew ONE (17:30)
== END 2023-07-11 19:00 | disposition home or self-care (01) ==
LOC: DL.ED 16:03
DX: R07.89 Other chest pain (principal); I11.0 Hypertensive heart disease with heart failure; I50.9 Heart failure, unspecified; I25.2 Old myocardial infarction; E78.00 Pure hypercholesterolemia, unspecified; E11.9 Type 2 diabetes mellitus without complications
CPT/HCPCS: 36415; 71045; 80053; 84484; 85025; 85379; 85610; 93005; 93010; 99284; 99285; A9270

== ENCOUNTER 2025-01-24 12:41 | Emergency (ER) | payer BC, OTHER ==
[2025-01-24 13:28] LABS: BASOPHILS PERCENT AUTO 0.4 % (0.0-1.0); EOSINOPHILS PERCENT AUTO 2.6 % (1.0-3.0); LYMPHOCYTES PERCENT AUTO 19.0 % (20.5-50.1); MONOCYTES PERCENT AUTO 13.0 % (2-8); NEUTROPHILS PERCENT AUTO 65.0 % (42.2-75.2); PLATELET COUNT,PLT 152 10^3/uL (150-450); RED BLOOD CELL COUNT 4.85 10^6/uL (4.6-6.2); WHITE BLOOD CELL COUNT,WBC 5.0 10^3/uL (5.0-10.0)
[2025-01-24] MEDS: Sodium Chloride 0.9% 10 ML Syringe FLUSH PRN (13:35)
[2025-01-24 13:40] LABS: A/G RATIO 0.9; ALANINE AMINOTRANSFERASE,ALT 19.0 U/L (16-63); ASPARTATE AMNIOTRANSFERASE,AST 19.0 U/L (15-37); BILIRUBIN TOTAL 0.7 mg/dL (0.2-1.0); BLOOD UREA NITROGEN,BUN 21.0 mg/dL (7-18); CARBON DIOXIDE,CO2 25.0 mmol/L (21-32); CHLORIDE,CL 105.0 mmol/L (98-107); CREATININE 1.04 mg/dL (0.70-1.30); EST CRCL DRUG DOSING (CG) 83.84 mL/min; ESTIMATED GFR 85.0 mL/min (>=60); GLUCOSE RANDOM 120.0 mg/dL (70-99); POTASSIUM,K 3.9 mmol/L (3.5-5.1); PROTEIN TOTAL,TP 7.7 g/dL (6.4-8.2); SODIUM,NA 139.0 mmol/L (136-145)
[2025-01-24 13:54] LABS: INR 0.9 (0.9-1.2)
[2025-01-24] MEDS: Iopamidol 755 Mg/ML 100 ML Bottle IVPUSH ONE (14:14)
[2025-01-24 14:17] LABS: B-TYPE NATRIURETIC PEPTIDE,BNP 65.0 pg/ml (0-100)
[2025-01-24 15:00] VITALS: BP 135/89; PULSE 75
== END 2025-01-24 14:54 | disposition home or self-care (01) ==
LOC: DL.ED 12:41
DX: R04.2 Hemoptysis (principal); C78.01 Secondary malignant neoplasm of right lung; C64.9 Malignant neoplasm of unspecified kidney, except renal pelvis; I11.0 Hypertensive heart disease with heart failure; I50.9 Heart failure, unspecified; E78.00 Pure hypercholesterolemia, unspecified; I25.2 Old myocardial infarction; E11.9 Type 2 diabetes mellitus without complications; Z95.5 Presence of coronary angioplasty implant and graft; Z88.5 Allergy status to narcotic agent; Z79.84 Long term (current) use of oral hypoglycemic drugs; Z79.899 Other long term (current) drug therapy
CPT/HCPCS: 36415; 71275; 80053; 83880; 85025; 85610; 93005; 99285; J7040; Q9967